=== PATIENT | female | born 1990 | race Caucasian/White ===

== ENCOUNTER 2017-09-26 21:40 | Inpatient (IN) | payer MEDICAID, OTHER ==
[~2017-09-26] VITALS: Ht 162.6 cm; Wt 74.5 kg
[~2017-09-26 21:40] MED LIST: ASPI-1265 PO; CLIN-80 PO
[2017-09-26] MEDS ORDERED: acetaminophen 325mg tablet PO ONE (22:40)
[2017-09-26 23:09] LABS: BASOPHILS % (AUTO) 0.1 % (0-1); EOSINOPHILS # (AUTO) 0.2 X10'3 (0-0.9); EOSINOPHILS % (AUTO) 1.4 % (0-6); HEMOGLOBIN 12.1 g/dl (12.0-16.0); LYMPHOCYTES % (AUTO) 8.8 % (21-51); MEAN CORPUSCULAR HGB CONC 33.5 % (33.0-36.5); MEAN CORPUSCULAR VOLUME 77.5 FL (78-98); MEAN PLATELET VOLUME 9.5 FL (7.4-10.4); MONOCYTES # (AUTO) 0.7 X10'3 (0-0.9); MONOCYTES % (AUTO) 6.4 % (2-12); NEUTROPHILS # (AUTO) 9.2 X10'3 (1.8-7.7); NEUTROPHILS % (AUTO) 83.3 % (42-75); PLATELET COUNT 156 X10'3 (140-440); RED BLOOD COUNT 4.64 X10'6 (4.20-5.60); RED CELL DISTRIBUTION WIDTH 14.3 % (11.5-14.5); WHITE BLOOD COUNT 11.1 X10'3 (4.5-11.0)
[2017-09-26 23:21] LABS: INR 1.1 INR; PARTIAL THROMBOPLASTIN TIME 33 SECONDS (22-32); PROTHROMBIN TIME 10.9 SECONDS (9.0-12.0)
[2017-09-26] MEDS ORDERED: vancomycin/NS 1 GM ADD-VANTAGE 250 ML IV ONE (23:25)
[2017-09-26] MEDS ORDERED: levoFLOXACIN-Levaquin 750MG/D5 150 ML IV ONE (23:25)
[2017-09-26] MEDS ORDERED: normal saline 1000ML IV soln IVB ONE (23:25)
[2017-09-26 23:43] LABS: ALANINE AMINOTRANSFERASE 38 U/L (12-78); ALBUMIN 3.4 G/DL (3.4-5.0); ALBUMIN/GLOBULIN RATIO 0.7 (1.1-1.5); ALKALINE PHOSPHATASE 93 IU/L (46-116); ANION GAP 12 (8-16); ASPARTATE AMINO TRANSFERASE 36 U/L (10-37); BILIRUBIN,TOTAL 0.5 MG/DL (0.1-1.0); BLOOD UREA NITROGEN 16 MG/DL (7-18); BUN/CREATININE RATIO 13.4 (6.6-38.0); CALCIUM 8.6 MG/DL (8.5-10.1); CHLORIDE 98 MMOL/L (99-107); CREATININE 1.19 MG/DL (0.40-0.90); GLUCOSE 93 MG/DL (70-104); POTASSIUM 3.4 MMOL/L (3.5-5.1); SODIUM 136 MMOL/L (135-145); TOTAL CARBON DIOXIDE 25.8 MMOL/L (24-32); TOTAL PROTEIN 8.4 G/DL (6.4-8.2); eGFR 54 ML/MIN
[2017-09-26] MEDS ORDERED: iohexol 350MG/ML 100ml bottle IV ONE (23:43)
[2017-09-26] MEDS ORDERED: iohexol 350 MG/ML 50ML vial IV ONE (23:44)
[2017-09-26 23:50] LABS: HCG SERUM QL NEGATIVE
[2017-09-27 01:28] LABS: CLARITY,URINE CLOUDY (Clear); COLOR,URINE YELLOW (Yellow); GLUCOSE, URINE NEGATIVE (Neg); KETONES,URINE NEGATIVE (Neg); LEUKOCYTE ESTERASE ,URINE TRACE (Neg); NITRITES, URINE POSITIVE (Neg); OCCULT BLOOD,URINE LARGE (Neg); PROTEIN,URINE 100 mg/dl (Neg)
[2017-09-27 01:33] LABS: UA COLLECTION TYPE CLN CATCH MIDSTREAM
[2017-09-27 01:35] LABS: BACTERIA,URINE 2+ /HPF (Neg); RBC,URINE 50-100 /HPF (0-2); SQUAMOUS EPITHELIAL CELL,UR FEW /LPF (FEW); WBC,URINE 50-100 /HPF (0-4)
[2017-09-27] MEDS ORDERED: LIDOcaine Viscous 15ml cup MM PRN (01:50)
[2017-09-27] MEDS ORDERED: mag hydrox/Alum hydrox/simeth 30ml oral suspension PO PRN (02:00)
[2017-09-27] MEDS ORDERED: magnesium hydroxide 30ml (MOM) UD suspension PO PRN (02:00)
[2017-09-27] MEDS ORDERED: ondansetron/PF 4mg/2ml inj IV PRN (02:00)
[2017-09-27] MEDS ORDERED: NO HOME MEDS (03:56)
[2017-09-27] MEDS: heparin, porcine 5000 units/ml vial SQ SCH ×2 (07:51→19:57)
[2017-09-27] MEDS: buprenorphine/naloxone 2-0.5mg sublingual tablet SL SCH ×3 (07:51→13:44)
[2017-09-27] MEDS: CefTRIAXone/D5W-Rocephin 1gm 50 ML IV SCH ×2 (08:00→09:04)
[2017-09-27] MEDS: azithromycin/NS 500mg/250ml 250 ML IV SCH ×2 (08:00→10:44)
[2017-09-27 08:34] LABS: URINE AMPHETAMINE SCREEN POSITIVE (Neg); URINE BARBITUATE SCREEN NEGATIVE (Neg); URINE BENZODIAZEPINES SCREEN NEGATIVE (Neg); URINE CANNABINOID SCREEN POSITIVE (Neg); URINE COCAINE SCREEN NEGATIVE (Neg); URINE METHADONE SCREEN NEGATIVE (Neg); URINE OPIATE SCREEN POSITIVE (Neg); URINE PHENCYCLIDINE SCREEN NEGATIVE (Neg)
[2017-09-27 09:00] VITALS: BP 138/85
[2017-09-27] MEDS: acetaminophen 325mg tablet PO PRN (09:03)
[2017-09-27 11:05] VITALS: BP 136/83
[2017-09-27] MEDS: vancomycin/NS 1 GM ADD-VANTAGE 250 ML IV SCH ×2 (12:19→20:36)
[2017-09-27] MEDS: normal saline 1000ml 1,000 ML IV SCH ×2 (13:44→23:00)
[2017-09-27] MEDS ORDERED: potassium Cl 40MEQ/NS 500ml 500 ML IV PRN ×2 (13:55)
[2017-09-27] MEDS ORDERED: magnesium Cl slow-release 64mg tablet PO PRN (13:55)
[2017-09-27] MEDS ORDERED: magnesium 4gm in 100ml NS 100 ML IV PRN (13:55)
[2017-09-27] MEDS ORDERED: magnesium 2GM in 50ml NS 50 ML IV PRN (13:55)
[2017-09-27] MEDS ORDERED: potassium Cl 20 mEq SR tablet PO PRN ×2 (13:55)
[2017-09-27 19:00] VITALS: BP 141/82
[2017-09-27] MEDS: lactobacillus rhamnosus 10,000 MMU CELLS/CAPSULE PO SCH (19:55)
[2017-09-27] MEDS: ibuprofen tablet 400 MG TABLET PO PRN (20:36)
[2017-09-28] MEDS: ibuprofen tablet 400 MG TABLET PO PRN ×2 (03:30→20:24)
[2017-09-28 05:34] LABS: BASOPHILS % (AUTO) 0.3 % (0-1); EOSINOPHILS # (AUTO) 0.1 X10'3 (0-0.9); EOSINOPHILS % (AUTO) 0.9 % (0-6); HEMATOCRIT 30.2 % (35.0-45.0); HEMOGLOBIN 9.9 g/dl (12.0-16.0); LYMPHOCYTES % (AUTO) 11.6 % (21-51); MEAN CORPUSCULAR HEMOGLOBIN 25.7 PG (27.0-31.0); MEAN CORPUSCULAR HGB CONC 32.8 % (33.0-36.5); MEAN CORPUSCULAR VOLUME 78.5 FL (78-98); MEAN PLATELET VOLUME 10.5 FL (7.4-10.4); MONOCYTES # (AUTO) 0.9 X10'3 (0-0.9); MONOCYTES % (AUTO) 10.3 % (2-12); NEUTROPHILS # (AUTO) 6.7 X10'3 (1.8-7.7); NEUTROPHILS % (AUTO) 76.9 % (42-75); PLATELET COUNT 120 X10'3 (140-440); RED BLOOD COUNT 3.85 X10'6 (4.20-5.60); RED CELL DISTRIBUTION WIDTH 14.2 % (11.5-14.5); WHITE BLOOD COUNT 8.7 X10'3 (4.5-11.0)
[2017-09-28 05:59] LABS: ALANINE AMINOTRANSFERASE 48 U/L (12-78); ALBUMIN 2.3 G/DL (3.4-5.0); ALBUMIN/GLOBULIN RATIO 0.6 (1.1-1.5); ALKALINE PHOSPHATASE 138 IU/L (46-116); ANION GAP 9 (8-16); ASPARTATE AMINO TRANSFERASE 38 U/L (10-37); BILIRUBIN,TOTAL 0.7 MG/DL (0.1-1.0); BLOOD UREA NITROGEN 7 MG/DL (7-18); CALCIUM 8.2 MG/DL (8.5-10.1); CHLORIDE 105 MMOL/L (99-107); CREATININE 0.54 MG/DL (0.40-0.90); GLUCOSE 103 MG/DL (70-104); POTASSIUM 3.5 MMOL/L (3.5-5.1); SODIUM 139 MMOL/L (135-145); TOTAL CARBON DIOXIDE 25.3 MMOL/L (24-32); TOTAL PROTEIN 6.4 G/DL (6.4-8.2); eGFR > 90 ML/MIN
[2017-09-28 07:24] VITALS: BP 133/86
[2017-09-28] MEDS: heparin, porcine 5000 units/ml vial SQ SCH ×3 (08:00→20:00)
[2017-09-28] MEDS: buprenorphine/naloxone 2-0.5mg sublingual tablet SL SCH ×4 (08:00→23:42)
[2017-09-28] MEDS: CefTRIAXone/D5W-Rocephin 1gm 50 ML IV SCH (08:04)
[2017-09-28] MEDS: lactobacillus rhamnosus 10,000 MMU CELLS/CAPSULE PO SCH ×2 (08:04→20:24)
[2017-09-28] MEDS: normal saline 1000ml 1,000 ML IV SCH ×2 (08:07→22:47)
[2017-09-28] MEDS: vancomycin/NS 1 GM ADD-VANTAGE 250 ML IV SCH ×2 (10:48→18:35)
[2017-09-28 11:30] VITALS: BP 120/75
[2017-09-28] MEDS: azithromycin/NS 500mg/250ml 250 ML IV SCH (12:32)
[2017-09-28 19:00] VITALS: BP 133/81
[2017-09-29] VITALS: BP 128/72
[2017-09-29] MEDS: vancomycin/NS 1 GM ADD-VANTAGE 250 ML IV SCH ×2 (03:14→11:39)
[2017-09-29] MEDS: normal saline 1000ml 1,000 ML IV SCH ×3 (05:00→22:00)
[2017-09-29] MEDS: CefTRIAXone/D5W-Rocephin 1gm 50 ML IV SCH (07:52)
[2017-09-29] MEDS: lactobacillus rhamnosus 10,000 MMU CELLS/CAPSULE PO SCH ×2 (07:53→19:51)
[2017-09-29] MEDS: buprenorphine/naloxone 2-0.5mg sublingual tablet SL SCH ×3 (07:53→23:49)
[2017-09-29] MEDS: heparin, porcine 5000 units/ml vial SQ SCH ×2 (07:54→19:51)
[2017-09-29 08:00] VITALS: BP 146/91
[2017-09-29] MEDS ORDERED: VANCOMYCIN LEVEL IV NR (08:30)
[2017-09-29] MEDS: azithromycin/NS 500mg/250ml 250 ML IV SCH (09:35)
[2017-09-29 11:30] VITALS: BP 124/71
[2017-09-29 11:33] LABS: BASOPHILS % (AUTO) 0.3 % (0-1); EOSINOPHILS # (AUTO) 0.1 X10'3 (0-0.9); EOSINOPHILS % (AUTO) 1.2 % (0-6); HEMATOCRIT 29.4 % (35.0-45.0); HEMOGLOBIN 9.8 g/dl (12.0-16.0); LYMPHOCYTES # (AUTO) 1.5 X10'3 (1.1-4.8); LYMPHOCYTES % (AUTO) 18.8 % (21-51); MEAN CORPUSCULAR HEMOGLOBIN 25.6 PG (27.0-31.0); MEAN CORPUSCULAR HGB CONC 33.4 % (33.0-36.5); MEAN CORPUSCULAR VOLUME 76.7 FL (78-98); MEAN PLATELET VOLUME 9.6 FL (7.4-10.4); MONOCYTES # (AUTO) 0.8 X10'3 (0-0.9); MONOCYTES % (AUTO) 10.1 % (2-12); NEUTROPHILS # (AUTO) 5.4 X10'3 (1.8-7.7); NEUTROPHILS % (AUTO) 69.6 % (42-75); PLATELET COUNT 174 X10'3 (140-440); RED BLOOD COUNT 3.82 X10'6 (4.20-5.60); RED CELL DISTRIBUTION WIDTH 14.2 % (11.5-14.5); WHITE BLOOD COUNT 7.8 X10'3 (4.5-11.0)
[2017-09-29 11:50] LABS: ALANINE AMINOTRANSFERASE 31 U/L (12-78); ALBUMIN 2.1 G/DL (3.4-5.0); ALBUMIN/GLOBULIN RATIO 0.5 (1.1-1.5); ALKALINE PHOSPHATASE 127 IU/L (46-116); ANION GAP 9 (8-16); ASPARTATE AMINO TRANSFERASE 17 U/L (10-37); BILIRUBIN,TOTAL 0.3 MG/DL (0.1-1.0); BLOOD UREA NITROGEN 5 MG/DL (7-18); BUN/CREATININE RATIO 10.4 (6.6-38.0); CALCIUM 7.9 MG/DL (8.5-10.1); CHLORIDE 104 MMOL/L (99-107); CREATININE 0.48 MG/DL (0.40-0.90); GLUCOSE 98 MG/DL (70-104); POTASSIUM 3.3 MMOL/L (3.5-5.1); SODIUM 138 MMOL/L (135-145); TOTAL CARBON DIOXIDE 25.2 MMOL/L (24-32); TOTAL PROTEIN 6.2 G/DL (6.4-8.2); VANCOMYCIN,TROUGH 7.3 UG/ML (6.0-14.0); eGFR > 90 ML/MIN
[2017-09-29 14:35] LABS: HIV ANTIBODY 1&2 RAPID NON-REACTIVE (Neg)
[2017-09-29 19:10] VITALS: BP 128/68
[2017-09-29] MEDS: ibuprofen tablet 400 MG TABLET PO PRN (19:51)
[2017-09-30 07:00] VITALS: BP 113/70
[2017-09-30] MEDS: lactobacillus rhamnosus 10,000 MMU CELLS/CAPSULE PO SCH ×2 (07:33→20:08)
[2017-09-30] MEDS: buprenorphine/naloxone 2-0.5mg sublingual tablet SL SCH ×2 (07:33→17:06)
[2017-09-30] MEDS: CefTRIAXone 2gm/D5W 50ml 50 ML IV SCH (07:34)
[2017-09-30] MEDS: ibuprofen tablet 400 MG TABLET PO PRN ×2 (07:36→17:08)
[2017-09-30] MEDS: heparin, porcine 5000 units/ml vial SQ SCH ×2 (07:43→20:00)
[2017-09-30] MEDS: normal saline 1000ml 1,000 ML IV SCH ×2 (10:17→19:12)
[2017-09-30 11:00] VITALS: BP 100/68
[2017-09-30] MEDS ORDERED: magnesium 4gm in 100ml NS 100 ML IV PRN (17:25)
[2017-09-30] MEDS ORDERED: potassium Cl 20 mEq SR tablet PO PRN ×2 (17:25)
[2017-09-30] MEDS ORDERED: potassium Cl 40MEQ/NS 500ml 500 ML IV PRN ×2 (17:25)
[2017-09-30] MEDS ORDERED: magnesium 2GM in 50ml NS 50 ML IV PRN (17:25)
[2017-09-30] MEDS ORDERED: magnesium Cl slow-release 64mg tablet PO PRN (17:25)
[2017-09-30 19:10] VITALS: BP 127/66
[2017-10-01] VITALS: BP 142/76
[2017-10-01 07:00] VITALS: BP 138/73
[2017-10-01] MEDS: heparin, porcine 5000 units/ml vial SQ SCH ×2 (08:00→20:00)
[2017-10-01] MEDS: buprenorphine/naloxone 2-0.5mg sublingual tablet SL SCH ×4 (08:06→23:59)
[2017-10-01] MEDS: lactobacillus rhamnosus 10,000 MMU CELLS/CAPSULE PO SCH ×2 (08:06→21:00)
[2017-10-01] MEDS: ibuprofen tablet 400 MG TABLET PO PRN ×2 (08:06→15:50)
[2017-10-01] MEDS: CefTRIAXone 2gm/D5W 50ml 50 ML IV SCH (08:07)
[2017-10-01] MEDS: normal saline 1000ml 1,000 ML IV SCH ×2 (08:20→18:03)
[2017-10-01 11:57] VITALS: BP 127/68
[2017-10-01 13:27] LABS: HBSAG SCREEN Negative (Negative); HEP A AB, IGM Negative (Negative); HEP B CORE AB, IGM Negative (Negative); HEPATITIS C ANTIBODY >11.0 s/co ratio (0.0-0.9)
[2017-10-01 16:07] LABS: BASOPHILS % (AUTO) 0.2 % (0-1); EOSINOPHILS # (AUTO) 0.2 X10'3 (0-0.9); EOSINOPHILS % (AUTO) 1.7 % (0-6); HEMATOCRIT 29.1 % (35.0-45.0); HEMOGLOBIN 9.6 g/dl (12.0-16.0); LYMPHOCYTES # (AUTO) 1.9 X10'3 (1.1-4.8); LYMPHOCYTES % (AUTO) 20.9 % (21-51); MEAN CORPUSCULAR HEMOGLOBIN 25.5 PG (27.0-31.0); MEAN CORPUSCULAR HGB CONC 32.9 % (33.0-36.5); MEAN CORPUSCULAR VOLUME 77.4 FL (78-98); MEAN PLATELET VOLUME 9.1 FL (7.4-10.4); MONOCYTES % (AUTO) 11.4 % (2-12); NEUTROPHILS # (AUTO) 5.9 X10'3 (1.8-7.7); NEUTROPHILS % (AUTO) 65.8 % (42-75); PLATELET COUNT 248 X10'3 (140-440); RED BLOOD COUNT 3.76 X10'6 (4.20-5.60); WHITE BLOOD COUNT 8.9 X10'3 (4.5-11.0)
[2017-10-01 16:21] LABS: ALANINE AMINOTRANSFERASE 24 U/L (12-78); ALBUMIN/GLOBULIN RATIO 0.4 (1.1-1.5); ALKALINE PHOSPHATASE 128 IU/L (46-116); ANION GAP 8 (8-16); ASPARTATE AMINO TRANSFERASE 13 U/L (10-37); BILIRUBIN,TOTAL 0.2 MG/DL (0.1-1.0); BLOOD UREA NITROGEN 8 MG/DL (7-18); BUN/CREATININE RATIO 13.8 (6.6-38.0); CALCIUM 8.3 MG/DL (8.5-10.1); CHLORIDE 105 MMOL/L (99-107); CREATININE 0.58 MG/DL (0.40-0.90); GLUCOSE 106 MG/DL (70-104); MAGNESIUM 2.1 MG/DL (1.5-2.4); POTASSIUM 3.6 MMOL/L (3.5-5.1); SODIUM 141 MMOL/L (135-145); TOTAL CARBON DIOXIDE 28.4 MMOL/L (24-32); TOTAL PROTEIN 6.5 G/DL (6.4-8.2); eGFR > 90 ML/MIN
[2017-10-01 19:10] VITALS: BP 127/76
[2017-10-02] VITALS: BP 94/86
[2017-10-02] MEDS: normal saline 1000ml 1,000 ML IV SCH ×3 (03:00→22:24)
[2017-10-02 06:16] LABS: BASOPHILS % (AUTO) 0.3 % (0-1); EOSINOPHILS # (AUTO) 0.2 X10'3 (0-0.9); EOSINOPHILS % (AUTO) 2.1 % (0-6); HEMATOCRIT 27.8 % (35.0-45.0); HEMOGLOBIN 9.5 g/dl (12.0-16.0); LYMPHOCYTES # (AUTO) 1.8 X10'3 (1.1-4.8); LYMPHOCYTES % (AUTO) 20.4 % (21-51); MEAN CORPUSCULAR HEMOGLOBIN 25.8 PG (27.0-31.0); MEAN CORPUSCULAR VOLUME 75.9 FL (78-98); MEAN PLATELET VOLUME 9.5 FL (7.4-10.4); MONOCYTES # (AUTO) 0.7 X10'3 (0-0.9); MONOCYTES % (AUTO) 8.6 % (2-12); NEUTROPHILS # (AUTO) 5.9 X10'3 (1.8-7.7); NEUTROPHILS % (AUTO) 68.6 % (42-75); PLATELET COUNT 284 X10'3 (140-440); RED BLOOD COUNT 3.67 X10'6 (4.20-5.60); RED CELL DISTRIBUTION WIDTH 14.2 % (11.5-14.5); WHITE BLOOD COUNT 8.6 X10'3 (4.5-11.0)
[2017-10-02 06:21] LABS: ALANINE AMINOTRANSFERASE 22 U/L (12-78); ALBUMIN 1.9 G/DL (3.4-5.0); ALBUMIN/GLOBULIN RATIO 0.4 (1.1-1.5); ALKALINE PHOSPHATASE 129 IU/L (46-116); ANION GAP 7 (8-16); ASPARTATE AMINO TRANSFERASE 15 U/L (10-37); BILIRUBIN,TOTAL 0.3 MG/DL (0.1-1.0); BLOOD UREA NITROGEN 6 MG/DL (7-18); CALCIUM 8.1 MG/DL (8.5-10.1); CHLORIDE 104 MMOL/L (99-107); GLUCOSE 103 MG/DL (70-104); MAGNESIUM 1.8 MG/DL (1.5-2.4); POTASSIUM 3.7 MMOL/L (3.5-5.1); SODIUM 139 MMOL/L (135-145); TOTAL CARBON DIOXIDE 28.2 MMOL/L (24-32); TOTAL PROTEIN 6.4 G/DL (6.4-8.2); eGFR > 90 ML/MIN
[2017-10-02 07:22] VITALS: BP 140/80
[2017-10-02] MEDS: lactobacillus rhamnosus 10,000 MMU CELLS/CAPSULE PO SCH ×2 (07:33→20:19)
[2017-10-02] MEDS: CefTRIAXone 2gm/D5W 50ml 50 ML IV SCH (07:33)
[2017-10-02] MEDS: buprenorphine/naloxone 2-0.5mg sublingual tablet SL SCH ×2 (07:34→16:12)
[2017-10-02] MEDS: heparin, porcine 5000 units/ml vial SQ SCH ×2 (07:34→21:38)
[2017-10-02 11:55] VITALS: BP 123/79
[2017-10-02 20:00] VITALS: BP 141/89
[2017-10-02] MEDS: ibuprofen tablet 400 MG TABLET PO PRN (20:19)
[2017-10-03] VITALS: BP 134/98
[2017-10-03] MEDS: buprenorphine/naloxone 2-0.5mg sublingual tablet SL SCH ×3 (00:59→17:13)
[2017-10-03 07:00] VITALS: BP 138/89
[2017-10-03] MEDS: normal saline 1000ml 1,000 ML IV SCH ×2 (07:43→17:17)
[2017-10-03] MEDS: CefTRIAXone 2gm/D5W 50ml 50 ML IV SCH (07:44)
[2017-10-03] MEDS: heparin, porcine 5000 units/ml vial SQ SCH ×3 (07:45→21:38)
[2017-10-03] MEDS: lactobacillus rhamnosus 10,000 MMU CELLS/CAPSULE PO SCH ×2 (07:45→21:34)
[2017-10-03 11:00] VITALS: BP 143/97
[2017-10-03] MEDS ORDERED: LIDOcaine 1%/PF (10mg/ml) 5ml vial ONE (14:54)
[2017-10-03 15:00] VITALS: BP 118/76
[2017-10-03 15:15] VITALS: BP 126/74
[2017-10-03 16:00] LABS: BFSOURCE LEFT PLEURAL FLD; PLEURAL FLUID PH 7.208 (7.63-7.65)
[2017-10-03 16:13] LABS: BF RBC COUNT 665 /CU MM; BF WBC COUNT 480 /CU MM (0-1000); BFAPPEAR HAZY; BFCOLOR YELLOW; BFVOLUME 60 ML; LYMPHOCYTES,BODY FLUID 31 %; MONOCYTES,BODY FLUID 2 %; NEUTROPHILS,BODY FLUID 67 %
[2017-10-03 16:38] LABS: GLUCOSE,BODY FLUID 69 MG/DL
[2017-10-03 16:39] LABS: LDH,BODY FLUID 301 U/L; TOTAL PROTEIN,BODY FLUID 4.5 G/DL
[2017-10-03 20:00] VITALS: BP 143/90
[2017-10-04] VITALS: BP 156/94
[2017-10-04] MEDS: buprenorphine/naloxone 2-0.5mg sublingual tablet SL SCH ×4 (01:12→23:57)
[2017-10-04] MEDS: normal saline 1000ml 1,000 ML IV SCH ×2 (01:16→13:50)
[2017-10-04 06:18] LABS: POTASSIUM 3.7 MMOL/L (3.5-5.1)
[2017-10-04 07:00] VITALS: BP 144/83
[2017-10-04] MEDS: heparin, porcine 5000 units/ml vial SQ SCH ×3 (08:00→09:13)
[2017-10-04] MEDS: CefTRIAXone 2gm/D5W 50ml 50 ML IV SCH (09:09)
[2017-10-04] MEDS: lactobacillus rhamnosus 10,000 MMU CELLS/CAPSULE PO SCH ×2 (09:11→19:26)
[2017-10-04 11:00] VITALS: BP 140/94
[2017-10-04] MEDS: HYDROcodone/acetaminophen 5mg/325mg tablet PO PRN (19:26)
[2017-10-04 20:00] VITALS: BP 134/95
[2017-10-05] VITALS: BP 158/100
[2017-10-05] MEDS: normal saline 1000ml 1,000 ML IV SCH ×3 (01:11→20:08)
[2017-10-05 05:49] LABS: POTASSIUM 3.8 MMOL/L (3.5-5.1)
[2017-10-05 07:40] VITALS: BP 159/95
[2017-10-05] MEDS: lactobacillus rhamnosus 10,000 MMU CELLS/CAPSULE PO SCH ×2 (07:45→20:05)
[2017-10-05] MEDS: CefTRIAXone 2gm/D5W 50ml 50 ML IV SCH (07:45)
[2017-10-05] MEDS: buprenorphine/naloxone 2-0.5mg sublingual tablet SL SCH ×2 (07:56→16:05)
[2017-10-05] MEDS ORDERED: metoprolol succinate 25mg (24-HOUR) SR. Tablet PO ONE (10:45)
[2017-10-05 11:45] VITALS: BP 144/93
[2017-10-05 19:00] VITALS: BP 140/98
[2017-10-05] MEDS: heparin, porcine 5000 units/ml vial SQ SCH (20:00)
[2017-10-05] MEDS: HYDROcodone/acetaminophen 5mg/325mg tablet PO PRN (20:06)
[2017-10-06] VITALS: BP 145/95
[2017-10-06] MEDS: buprenorphine/naloxone 2-0.5mg sublingual tablet SL SCH ×3 (00:10→16:58)
[2017-10-06 07:00] VITALS: BP 133/87
[2017-10-06] MEDS: normal saline 1000ml 1,000 ML IV SCH ×3 (07:00→18:58)
[2017-10-06] MEDS: CefTRIAXone 2gm/D5W 50ml 50 ML IV SCH (07:41)
[2017-10-06] MEDS: metoprolol succinate 25mg (24-HOUR) SR. Tablet PO SCH (07:43)
[2017-10-06] MEDS: heparin, porcine 5000 units/ml vial SQ SCH ×2 (07:43→20:00)
[2017-10-06] MEDS: lactobacillus rhamnosus 10,000 MMU CELLS/CAPSULE PO SCH ×2 (07:43→20:55)
[2017-10-06 12:00] VITALS: BP 148/86
[2017-10-06] MEDS: HYDROcodone/acetaminophen 5mg/325mg tablet PO PRN (18:54)
[2017-10-06 19:00] VITALS: BP 147/92
[2017-10-07] VITALS: BP 116/77
[2017-10-07] MEDS: buprenorphine/naloxone 2-0.5mg sublingual tablet SL SCH ×4 (01:15→23:20)
[2017-10-07] MEDS: normal saline 1000ml 1,000 ML IV SCH ×2 (04:26→15:17)
[2017-10-07 07:00] VITALS: BP 144/79
[2017-10-07] MEDS: heparin, porcine 5000 units/ml vial SQ SCH ×2 (08:00→19:48)
[2017-10-07] MEDS: metoprolol succinate 25mg (24-HOUR) SR. Tablet PO SCH (08:27)
[2017-10-07] MEDS: CefTRIAXone 2gm/D5W 50ml 50 ML IV SCH (08:27)
[2017-10-07] MEDS: lactobacillus rhamnosus 10,000 MMU CELLS/CAPSULE PO SCH ×2 (08:27→19:47)
[2017-10-07 12:27] VITALS: BP 133/70
[2017-10-07 19:00] VITALS: BP 137/81
[2017-10-08] VITALS: BP 141/83
[2017-10-08] MEDS: normal saline 1000ml 1,000 ML IV SCH ×2 (04:46→15:11)
[2017-10-08 07:00] VITALS: BP 138/75
[2017-10-08] MEDS: buprenorphine/naloxone 2-0.5mg sublingual tablet SL SCH ×2 (08:00→15:16)
[2017-10-08] MEDS: heparin, porcine 5000 units/ml vial SQ SCH (08:00)
[2017-10-08] MEDS: CefTRIAXone 2gm/D5W 50ml 50 ML IV SCH (09:30)
[2017-10-08] MEDS: lactobacillus rhamnosus 10,000 MMU CELLS/CAPSULE PO SCH ×2 (09:31→21:39)
[2017-10-08] MEDS: metoprolol succinate 25mg (24-HOUR) SR. Tablet PO SCH (09:32)
[2017-10-08 12:46] VITALS: BP 117/76
[2017-10-08 19:30] VITALS: BP 138/95
[2017-10-08] MEDS: rivaroxaban 10mg tablet PO SCH (21:39)
[2017-10-08] MEDS: HYDROcodone/acetaminophen 5mg/325mg tablet PO PRN (21:51)
[2017-10-09] VITALS: BP 148/88
[2017-10-09] MEDS: buprenorphine/naloxone 2-0.5mg sublingual tablet SL SCH ×4 (00:06→23:35)
[2017-10-09] MEDS: normal saline 1000ml 1,000 ML IV SCH ×2 (00:13→11:12)
[2017-10-09 06:49] LABS: BASOPHILS % (AUTO) 0.5 % (0-1); EOSINOPHILS # (AUTO) 0.2 X10'3 (0-0.9); EOSINOPHILS % (AUTO) 2.8 % (0-6); HEMATOCRIT 28.3 % (35.0-45.0); HEMOGLOBIN 9.4 g/dl (12.0-16.0); LYMPHOCYTES # (AUTO) 2.3 X10'3 (1.1-4.8); MEAN CORPUSCULAR HEMOGLOBIN 25.6 PG (27.0-31.0); MEAN CORPUSCULAR HGB CONC 33.3 % (33.0-36.5); MEAN CORPUSCULAR VOLUME 76.9 FL (78-98); MEAN PLATELET VOLUME 9.4 FL (7.4-10.4); MONOCYTES # (AUTO) 0.5 X10'3 (0-0.9); MONOCYTES % (AUTO) 6.4 % (2-12); NEUTROPHILS # (AUTO) 4.7 X10'3 (1.8-7.7); NEUTROPHILS % (AUTO) 60.3 % (42-75); PLATELET COUNT 345 X10'3 (140-440); RED BLOOD COUNT 3.68 X10'6 (4.20-5.60); RED CELL DISTRIBUTION WIDTH 13.8 % (11.5-14.5); WHITE BLOOD COUNT 7.8 X10'3 (4.5-11.0)
[2017-10-09 07:05] LABS: ALANINE AMINOTRANSFERASE 26 U/L (12-78); ALBUMIN 2.2 G/DL (3.4-5.0); ALBUMIN/GLOBULIN RATIO 0.5 (1.1-1.5); ALKALINE PHOSPHATASE 124 IU/L (46-116); ANION GAP 9 (8-16); ASPARTATE AMINO TRANSFERASE 16 U/L (10-37); BILIRUBIN,TOTAL 0.2 MG/DL (0.1-1.0); BLOOD UREA NITROGEN 10 MG/DL (7-18); BUN/CREATININE RATIO 18.9 (6.6-38.0); CALCIUM 8.6 MG/DL (8.5-10.1); CHLORIDE 104 MMOL/L (99-107); CREATININE 0.53 MG/DL (0.40-0.90); GLUCOSE 90 MG/DL (70-104); POTASSIUM 4.1 MMOL/L (3.5-5.1); SODIUM 140 MMOL/L (135-145); TOTAL CARBON DIOXIDE 26.8 MMOL/L (24-32); TOTAL PROTEIN 6.9 G/DL (6.4-8.2); eGFR > 90 ML/MIN
[2017-10-09 07:17] VITALS: BP 139/89
[2017-10-09] MEDS: rivaroxaban 10mg tablet PO SCH (08:05)
[2017-10-09] MEDS: metoprolol succinate 25mg (24-HOUR) SR. Tablet PO SCH (08:05)
[2017-10-09] MEDS: lactobacillus rhamnosus 10,000 MMU CELLS/CAPSULE PO SCH ×2 (08:05→21:05)
[2017-10-09] MEDS: CefTRIAXone 2gm/D5W 50ml 50 ML IV SCH (08:05)
[2017-10-09] MEDS ORDERED: NORMAL SALINE IJ ONE (11:15)
[2017-10-09] MEDS ORDERED: ALTEPLASE IJ ONE (11:15)
[2017-10-09 12:21] VITALS: BP 135/86
[2017-10-09] MEDS ORDERED: NORMAL SALINE IJ PRN (15:05)
[2017-10-09] MEDS ORDERED: ALTEPLASE IJ PRN (15:05)
[2017-10-09 20:00] VITALS: BP 151/88
[2017-10-10] VITALS (12 sets, daily range): BP systolic 123–161; BP diastolic 73–97
[2017-10-10 06:19] LABS: ALANINE AMINOTRANSFERASE 20 U/L (12-78); ALBUMIN 2.3 G/DL (3.4-5.0); ALBUMIN/GLOBULIN RATIO 0.5 (1.1-1.5); ALKALINE PHOSPHATASE 120 IU/L (46-116); ANION GAP 9 (8-16); ASPARTATE AMINO TRANSFERASE 12 U/L (10-37); BILIRUBIN,TOTAL 0.2 MG/DL (0.1-1.0); BLOOD UREA NITROGEN 16 MG/DL (7-18); BUN/CREATININE RATIO 23.9 (6.6-38.0); CALCIUM 8.5 MG/DL (8.5-10.1); CHLORIDE 105 MMOL/L (99-107); CREATININE 0.67 MG/DL (0.40-0.90); GLUCOSE 93 MG/DL (70-104); POTASSIUM 4.1 MMOL/L (3.5-5.1); SODIUM 142 MMOL/L (135-145); TOTAL CARBON DIOXIDE 27.8 MMOL/L (24-32); TOTAL PROTEIN 6.8 G/DL (6.4-8.2); eGFR > 90 ML/MIN
[2017-10-10] MEDS: rivaroxaban 10mg tablet PO SCH (08:00)
[2017-10-10] MEDS: lactobacillus rhamnosus 10,000 MMU CELLS/CAPSULE PO SCH ×2 (08:11→20:20)
[2017-10-10] MEDS: metoprolol succinate 25mg (24-HOUR) SR. Tablet PO SCH (08:11)
[2017-10-10] MEDS: CefTRIAXone 2gm/D5W 50ml 50 ML IV SCH (08:12)
[2017-10-10] MEDS: buprenorphine/naloxone 2-0.5mg sublingual tablet SL SCH ×3 (08:12→23:53)
[2017-10-10] MEDS ORDERED: LIDOcaine 1%/PF (10mg/ml) 5ml vial ONE (10:07)
[2017-10-10] MEDS ORDERED: fentaNYL/PF 50MCG/1 ML 2ML syringe ONE (10:08)
[2017-10-10] MEDS: ibuprofen tablet 400 MG TABLET PO PRN (12:45)
[2017-10-11] VITALS: BP 136/82
[2017-10-11 03:52] LABS: BASOPHILS # (AUTO) 0.1 X10'3 (0-0.2); BASOPHILS % (AUTO) 0.9 % (0-1); EOSINOPHILS # (AUTO) 0.2 X10'3 (0-0.9); EOSINOPHILS % (AUTO) 2.3 % (0-6); HEMATOCRIT 30.8 % (35.0-45.0); HEMOGLOBIN 10.1 g/dl (12.0-16.0); LYMPHOCYTES # (AUTO) 2.4 X10'3 (1.1-4.8); LYMPHOCYTES % (AUTO) 33.5 % (21-51); MEAN CORPUSCULAR HEMOGLOBIN 25.3 PG (27.0-31.0); MEAN CORPUSCULAR HGB CONC 32.7 % (33.0-36.5); MEAN CORPUSCULAR VOLUME 77.3 FL (78-98); MEAN PLATELET VOLUME 9.8 FL (7.4-10.4); MONOCYTES # (AUTO) 0.5 X10'3 (0-0.9); MONOCYTES % (AUTO) 7.3 % (2-12); PLATELET COUNT 360 X10'3 (140-440); RED BLOOD COUNT 3.98 X10'6 (4.20-5.60); RED CELL DISTRIBUTION WIDTH 14.2 % (11.5-14.5); WHITE BLOOD COUNT 7.2 X10'3 (4.5-11.0)
[2017-10-11 04:09] LABS: ALANINE AMINOTRANSFERASE 25 U/L (12-78); ALBUMIN 2.5 G/DL (3.4-5.0); ALBUMIN/GLOBULIN RATIO 0.5 (1.1-1.5); ALKALINE PHOSPHATASE 129 IU/L (46-116); ANION GAP 6 (8-16); BILIRUBIN,TOTAL 0.3 MG/DL (0.1-1.0); BLOOD UREA NITROGEN 14 MG/DL (7-18); BUN/CREATININE RATIO 25.9 (6.6-38.0); CALCIUM 8.9 MG/DL (8.5-10.1); CHLORIDE 103 MMOL/L (99-107); CREATININE 0.54 MG/DL (0.40-0.90); GLUCOSE 96 MG/DL (70-104); SODIUM 139 MMOL/L (135-145); TOTAL CARBON DIOXIDE 30.1 MMOL/L (24-32); TOTAL PROTEIN 7.7 G/DL (6.4-8.2); eGFR > 90 ML/MIN
[2017-10-11 04:13] LABS: ASPARTATE AMINO TRANSFERASE 37 U/L (10-37); POTASSIUM 5.7 MMOL/L (3.5-5.1)
[2017-10-11 08:00] VITALS: BP 122/88
[2017-10-11] MEDS: metoprolol succinate 25mg (24-HOUR) SR. Tablet PO SCH (09:20)
[2017-10-11] MEDS: lactobacillus rhamnosus 10,000 MMU CELLS/CAPSULE PO SCH ×2 (09:20→20:20)
[2017-10-11] MEDS: CefTRIAXone 2gm/D5W 50ml 50 ML IV SCH (09:20)
[2017-10-11] MEDS: ibuprofen tablet 400 MG TABLET PO PRN (09:21)
[2017-10-11] MEDS: buprenorphine/naloxone 2-0.5mg sublingual tablet SL SCH ×2 (09:21→15:54)
[2017-10-11] MEDS: rivaroxaban 10mg tablet PO SCH (10:10)
[2017-10-11 11:00] VITALS: BP 113/75
[2017-10-11] MEDS ORDERED: tPA-cathflo 2 MG/2 ml IV flush ICATH ONE (11:25)
[2017-10-11] MEDS ORDERED: HYDROcodone/acetaminophen 10/325mg tab PO PRN (12:15)
[2017-10-11 20:00] VITALS: BP 123/79
[2017-10-12] VITALS: BP 127/73
[2017-10-12 04:30] LABS: ALANINE AMINOTRANSFERASE 24 U/L (12-78); ALBUMIN 2.6 G/DL (3.4-5.0); ALBUMIN/GLOBULIN RATIO 0.5 (1.1-1.5); ALKALINE PHOSPHATASE 112 IU/L (46-116); ANION GAP 9 (8-16); ASPARTATE AMINO TRANSFERASE 13 U/L (10-37); BILIRUBIN,TOTAL 0.2 MG/DL (0.1-1.0); BLOOD UREA NITROGEN 17 MG/DL (7-18); BUN/CREATININE RATIO 24.6 (6.6-38.0); CHLORIDE 100 MMOL/L (99-107); CREATININE 0.69 MG/DL (0.40-0.90); GLUCOSE 111 MG/DL (70-104); POTASSIUM 4.4 MMOL/L (3.5-5.1); SODIUM 138 MMOL/L (135-145); TOTAL CARBON DIOXIDE 28.6 MMOL/L (24-32); TOTAL PROTEIN 7.4 G/DL (6.4-8.2); eGFR > 90 ML/MIN
[2017-10-12 07:00] VITALS: BP 119/75
[2017-10-12] MEDS: rivaroxaban 10mg tablet PO SCH (07:24)
[2017-10-12] MEDS: metoprolol succinate 25mg (24-HOUR) SR. Tablet PO SCH (07:24)
[2017-10-12] MEDS: lactobacillus rhamnosus 10,000 MMU CELLS/CAPSULE PO SCH ×2 (07:24→21:55)
[2017-10-12] MEDS: CefTRIAXone 2gm/D5W 50ml 50 ML IV SCH (07:25)
[2017-10-12] MEDS: ibuprofen tablet 400 MG TABLET PO PRN ×2 (07:28→21:55)
[2017-10-12] MEDS: buprenorphine/naloxone 2-0.5mg sublingual tablet SL SCH ×3 (07:29→16:32)
[2017-10-12] MEDS ORDERED: ALTEPLASE IJ ONE (09:00)
[2017-10-12] MEDS ORDERED: NORMAL SALINE IJ ONE (09:00)
[2017-10-12 12:00] VITALS: BP 114/62
[2017-10-12 20:00] VITALS: BP 92/55
[2017-10-12 23:00] VITALS: BP 122/69
[2017-10-13] MEDS: buprenorphine/naloxone 2-0.5mg sublingual tablet SL SCH ×3 (00:20→15:23)
[2017-10-13 05:26] LABS: BASOPHILS # (AUTO) 0.1 X10'3 (0-0.2); BASOPHILS % (AUTO) 0.7 % (0-1); EOSINOPHILS # (AUTO) 0.2 X10'3 (0-0.9); EOSINOPHILS % (AUTO) 1.9 % (0-6); HEMATOCRIT 29.7 % (35.0-45.0); HEMOGLOBIN 9.9 g/dl (12.0-16.0); LYMPHOCYTES # (AUTO) 2.2 X10'3 (1.1-4.8); LYMPHOCYTES % (AUTO) 22.6 % (21-51); MEAN CORPUSCULAR HEMOGLOBIN 25.6 PG (27.0-31.0); MEAN CORPUSCULAR HGB CONC 33.2 % (33.0-36.5); MONOCYTES # (AUTO) 0.8 X10'3 (0-0.9); NEUTROPHILS # (AUTO) 6.5 X10'3 (1.8-7.7); NEUTROPHILS % (AUTO) 66.8 % (42-75); PLATELET COUNT 247 X10'3 (140-440); RED BLOOD COUNT 3.85 X10'6 (4.20-5.60); RED CELL DISTRIBUTION WIDTH 14.3 % (11.5-14.5); WHITE BLOOD COUNT 9.7 X10'3 (4.5-11.0)
[2017-10-13 05:47] LABS: ALANINE AMINOTRANSFERASE 20 U/L (12-78); ALBUMIN 2.5 G/DL (3.4-5.0); ALBUMIN/GLOBULIN RATIO 0.5 (1.1-1.5); ALKALINE PHOSPHATASE 106 IU/L (46-116); ANION GAP 9 (8-16); BILIRUBIN,TOTAL 0.4 MG/DL (0.1-1.0); BLOOD UREA NITROGEN 13 MG/DL (7-18); BUN/CREATININE RATIO 19.1 (6.6-38.0); CALCIUM 8.8 MG/DL (8.5-10.1); CHLORIDE 104 MMOL/L (99-107); CREATININE 0.68 MG/DL (0.40-0.90); GLUCOSE 104 MG/DL (70-104); SODIUM 141 MMOL/L (135-145); TOTAL CARBON DIOXIDE 27.8 MMOL/L (24-32); TOTAL PROTEIN 7.6 G/DL (6.4-8.2); eGFR > 90 ML/MIN
[2017-10-13 05:48] LABS: ASPARTATE AMINO TRANSFERASE 27 U/L (10-37); POTASSIUM 4.5 MMOL/L (3.5-5.1)
[2017-10-13] MEDS: CefTRIAXone 2gm/D5W 50ml 50 ML IV SCH (07:15)
[2017-10-13] MEDS: lactobacillus rhamnosus 10,000 MMU CELLS/CAPSULE PO SCH ×2 (07:15→19:40)
[2017-10-13] MEDS: metoprolol succinate 25mg (24-HOUR) SR. Tablet PO SCH (07:16)
[2017-10-13] MEDS: rivaroxaban 10mg tablet PO SCH (07:17)
[2017-10-13 07:36] VITALS: BP 109/60
[2017-10-13 11:43] VITALS: BP 112/61
[2017-10-13] MEDS ORDERED: iohexol 300mg/ml 100ml inj. ONE (16:44)
[2017-10-13 18:00] VITALS: BP 119/67
[2017-10-13] MEDS: acetaminophen 325mg tablet PO PRN (19:40)
[2017-10-13 23:30] VITALS: BP 102/58
[2017-10-14] VITALS (16 sets, daily range): BP systolic 105–145; BP diastolic 58–72
[2017-10-14] MEDS: buprenorphine/naloxone 2-0.5mg sublingual tablet SL SCH ×3 (01:46→16:37)
[2017-10-14 05:55] LABS: BASOPHILS # (AUTO) 0.1 X10'3 (0-0.2); BASOPHILS % (AUTO) 0.9 % (0-1); EOSINOPHILS # (AUTO) 0.2 X10'3 (0-0.9); EOSINOPHILS % (AUTO) 2.2 % (0-6); HEMATOCRIT 28.1 % (35.0-45.0); HEMOGLOBIN 9.3 g/dl (12.0-16.0); LYMPHOCYTES % (AUTO) 23.4 % (21-51); MEAN CORPUSCULAR HEMOGLOBIN 25.5 PG (27.0-31.0); MEAN CORPUSCULAR VOLUME 77.2 FL (78-98); MEAN PLATELET VOLUME 9.4 FL (7.4-10.4); MONOCYTES # (AUTO) 0.8 X10'3 (0-0.9); MONOCYTES % (AUTO) 8.8 % (2-12); NEUTROPHILS # (AUTO) 5.6 X10'3 (1.8-7.7); NEUTROPHILS % (AUTO) 64.7 % (42-75); PLATELET COUNT 340 X10'3 (140-440); RED BLOOD COUNT 3.64 X10'6 (4.20-5.60); RED CELL DISTRIBUTION WIDTH 13.5 % (11.5-14.5); WHITE BLOOD COUNT 8.6 X10'3 (4.5-11.0)
[2017-10-14 06:56] LABS: ALANINE AMINOTRANSFERASE 30 U/L (12-78); ALBUMIN 2.9 G/DL (3.4-5.0); ALBUMIN/GLOBULIN RATIO 0.5 (1.1-1.5); ALKALINE PHOSPHATASE 119 IU/L (46-116); ANION GAP 7 (8-16); ASPARTATE AMINO TRANSFERASE 21 U/L (10-37); BILIRUBIN,TOTAL 0.5 MG/DL (0.1-1.0); BLOOD UREA NITROGEN 12 MG/DL (7-18); CALCIUM 9.2 MG/DL (8.5-10.1); CHLORIDE 101 MMOL/L (99-107); CREATININE 0.75 MG/DL (0.40-0.90); GLUCOSE 90 MG/DL (70-104); POTASSIUM 4.6 MMOL/L (3.5-5.1); SODIUM 139 MMOL/L (135-145); TOTAL CARBON DIOXIDE 30.6 MMOL/L (24-32); TOTAL PROTEIN 8.2 G/DL (6.4-8.2); eGFR > 90 ML/MIN
[2017-10-14] MEDS: lactobacillus rhamnosus 10,000 MMU CELLS/CAPSULE PO SCH ×2 (07:55→19:54)
[2017-10-14] MEDS: CefTRIAXone 2gm/D5W 50ml 50 ML IV SCH (07:55)
[2017-10-14] MEDS: metoprolol succinate 25mg (24-HOUR) SR. Tablet PO SCH (07:56)
[2017-10-14] MEDS ORDERED: NORMAL SALINE ICATH ONE (08:30)
[2017-10-14] MEDS ORDERED: FLUSH 5 MG ICATH ONE (08:30)
[2017-10-14] MEDS ORDERED: TPA CATHFLO ICATH ONE (08:30)
[2017-10-14] MEDS ORDERED: midazolam 2 mg/2 ml injection IV PRN (13:30)
[2017-10-14] MEDS ORDERED: fentaNYL/PF 50MCG/1 ML 2ML syringe IV PRN (13:30)
[2017-10-14] MEDS ORDERED: midazolam 2 mg/2 ml injection ONE (14:00)
[2017-10-14] MEDS ORDERED: fentaNYL/PF 50MCG/1 ML 2ML syringe ONE (14:00)
[2017-10-14] MEDS ORDERED: LIDOcaine 1%/PF (10mg/ml) 5ml vial ONE (14:30)
[2017-10-14 15:38] LABS: BFSOURCE LEFT PLEURAL FLD; PLEURAL FLUID PH 7.297 (7.63-7.65)
[2017-10-14 15:54] LABS: GLUCOSE,BODY FLUID 77 MG/DL; LDH,BODY FLUID 125 U/L; TOTAL PROTEIN,BODY FLUID 6.1 G/DL
[2017-10-14 16:30] LABS: LYMPHOCYTES,BODY FLUID 46 %; MONOCYTES,BODY FLUID 9 %; NEUTROPHILS,BODY FLUID 45 %
[2017-10-14 16:35] LABS: BFAPPEAR CLOUDY
[2017-10-14 16:36] LABS: BF RBC COUNT 900 /CU MM; BF WBC COUNT 950 /CU MM (0-1000); BFCOLOR YELLOW; BFVOLUME 10.5 ML
[2017-10-14] MEDS: ibuprofen tablet 400 MG TABLET PO PRN (19:53)
[2017-10-14] MEDS ORDERED: HYDROmorphone inj. 0.5 MG/0.5 ML DISP.SYRIN IM ONE (20:05)
[2017-10-15] MEDS: buprenorphine/naloxone 2-0.5mg sublingual tablet SL SCH ×3 (00:35→16:52)
[2017-10-15 06:00] LABS: BASOPHILS # (AUTO) 0.1 X10'3 (0-0.2); BASOPHILS % (AUTO) 0.8 % (0-1); EOSINOPHILS # (AUTO) 0.1 X10'3 (0-0.9); EOSINOPHILS % (AUTO) 2.3 % (0-6); HEMATOCRIT 28.7 % (35.0-45.0); HEMOGLOBIN 9.6 g/dl (12.0-16.0); LYMPHOCYTES # (AUTO) 1.9 X10'3 (1.1-4.8); LYMPHOCYTES % (AUTO) 31.2 % (21-51); MEAN CORPUSCULAR HEMOGLOBIN 25.3 PG (27.0-31.0); MEAN CORPUSCULAR HGB CONC 33.4 % (33.0-36.5); MEAN CORPUSCULAR VOLUME 75.7 FL (78-98); MEAN PLATELET VOLUME 9.1 FL (7.4-10.4); MONOCYTES # (AUTO) 0.7 X10'3 (0-0.9); MONOCYTES % (AUTO) 10.9 % (2-12); NEUTROPHILS # (AUTO) 3.4 X10'3 (1.8-7.7); NEUTROPHILS % (AUTO) 54.8 % (42-75); PLATELET COUNT 388 X10'3 (140-440); RED BLOOD COUNT 3.79 X10'6 (4.20-5.60); RED CELL DISTRIBUTION WIDTH 14.2 % (11.5-14.5); WHITE BLOOD COUNT 6.2 X10'3 (4.5-11.0)
[2017-10-15] MEDS: lactobacillus rhamnosus 10,000 MMU CELLS/CAPSULE PO SCH ×2 (09:34→20:16)
[2017-10-15] MEDS: metoprolol succinate 25mg (24-HOUR) SR. Tablet PO SCH (09:34)
[2017-10-15] MEDS: CefTRIAXone 2gm/D5W 50ml 50 ML IV SCH (09:35)
[2017-10-15 10:54] VITALS: BP 117/60
[2017-10-15 11:00] VITALS: BP 131/84
[2017-10-15] MEDS: ibuprofen tablet 400 MG TABLET PO PRN (16:55)
[2017-10-15 19:30] VITALS: BP 113/66
[2017-10-16] VITALS: BP 112/67
[2017-10-16] MEDS: buprenorphine/naloxone 2-0.5mg sublingual tablet SL SCH ×3 (00:22→17:03)
[2017-10-16 06:33] LABS: BASOPHILS # (AUTO) 0.1 X10'3 (0-0.2); BASOPHILS % (AUTO) 1.1 % (0-1); EOSINOPHILS # (AUTO) 0.1 X10'3 (0-0.9); HEMOGLOBIN 8.4 g/dl (12.0-16.0); LYMPHOCYTES # (AUTO) 1.9 X10'3 (1.1-4.8); LYMPHOCYTES % (AUTO) 40.6 % (21-51); MEAN CORPUSCULAR HEMOGLOBIN 25.5 PG (27.0-31.0); MEAN CORPUSCULAR HGB CONC 33.4 % (33.0-36.5); MEAN CORPUSCULAR VOLUME 76.2 FL (78-98); MEAN PLATELET VOLUME 9.2 FL (7.4-10.4); MONOCYTES # (AUTO) 0.4 X10'3 (0-0.9); MONOCYTES % (AUTO) 8.5 % (2-12); NEUTROPHILS # (AUTO) 2.2 X10'3 (1.8-7.7); NEUTROPHILS % (AUTO) 46.8 % (42-75); PLATELET COUNT 355 X10'3 (140-440); RED BLOOD COUNT 3.29 X10'6 (4.20-5.60); RED CELL DISTRIBUTION WIDTH 13.7 % (11.5-14.5); WHITE BLOOD COUNT 4.7 X10'3 (4.5-11.0)
[2017-10-16 07:08] VITALS: BP 117/62
[2017-10-16] MEDS: CefTRIAXone 2gm/D5W 50ml 50 ML IV SCH (09:08)
[2017-10-16] MEDS: lactobacillus rhamnosus 10,000 MMU CELLS/CAPSULE PO SCH ×2 (09:08→19:30)
[2017-10-16] MEDS: metoprolol succinate 25mg (24-HOUR) SR. Tablet PO SCH (09:09)
[2017-10-16] MEDS: ibuprofen tablet 400 MG TABLET PO PRN ×2 (09:09→17:03)
[2017-10-16 11:23] VITALS: BP 133/86
[2017-10-16 19:00] VITALS: BP 127/84
[2017-10-17] VITALS: BP 103/58
[2017-10-17] MEDS: buprenorphine/naloxone 2-0.5mg sublingual tablet SL SCH ×3 (00:08→17:19)
[2017-10-17] MEDS: lactobacillus rhamnosus 10,000 MMU CELLS/CAPSULE PO SCH ×2 (07:29→19:06)
[2017-10-17] MEDS: CefTRIAXone 2gm/D5W 50ml 50 ML IV SCH (07:29)
[2017-10-17] MEDS: metoprolol succinate 25mg (24-HOUR) SR. Tablet PO SCH (07:30)
[2017-10-17 07:51] VITALS: BP 106/58
[2017-10-17] MEDS ORDERED: iohexol 300mg/ml 100ml inj. ONE (07:55)
[2017-10-17] MEDS ORDERED: tPA-cathflo 2mg/2ml IV flush 2 MG in normal saline 100ml IV soln 20 ML ICATH ONE (09:14)
[2017-10-17 19:00] VITALS: BP 132/72
[2017-10-17] MEDS: ibuprofen tablet 400 MG TABLET PO PRN (19:06)
[2017-10-18] VITALS: BP 108/57
[2017-10-18] MEDS: buprenorphine/naloxone 2-0.5mg sublingual tablet SL SCH ×3 (00:39→16:25)
[2017-10-18 07:00] VITALS: BP 117/62
[2017-10-18] MEDS: metoprolol succinate 25mg (24-HOUR) SR. Tablet PO SCH (08:39)
[2017-10-18] MEDS: lactobacillus rhamnosus 10,000 MMU CELLS/CAPSULE PO SCH ×2 (08:39→19:33)
[2017-10-18] MEDS: CefTRIAXone 2gm/D5W 50ml 50 ML IV SCH (08:40)
[2017-10-18 11:00] VITALS: BP 110/76
[2017-10-18 20:00] VITALS: BP 146/72
[2017-10-19] VITALS: BP 122/68
[2017-10-19] MEDS: buprenorphine/naloxone 2-0.5mg sublingual tablet SL SCH ×4 (00:31→23:30)
[2017-10-19] MEDS: metoprolol succinate 25mg (24-HOUR) SR. Tablet PO SCH (07:45)
[2017-10-19] MEDS: lactobacillus rhamnosus 10,000 MMU CELLS/CAPSULE PO SCH ×2 (07:45→19:48)
[2017-10-19] MEDS: CefTRIAXone 2gm/D5W 50ml 50 ML IV SCH (07:46)
[2017-10-19 07:52] VITALS: BP 109/60
[2017-10-19 11:00] VITALS: BP 112/62
[2017-10-19 19:00] VITALS: BP 137/83
[2017-10-19 23:30] VITALS: BP 132/77
[2017-10-20 05:59] LABS: BASOPHILS # (AUTO) 0.1 X10'3 (0-0.2); BASOPHILS % (AUTO) 0.7 % (0-1); EOSINOPHILS # (AUTO) 0.2 X10'3 (0-0.9); EOSINOPHILS % (AUTO) 2.1 % (0-6); HEMATOCRIT 29.7 % (35.0-45.0); HEMOGLOBIN 9.7 g/dl (12.0-16.0); LYMPHOCYTES # (AUTO) 3.3 X10'3 (1.1-4.8); LYMPHOCYTES % (AUTO) 38.4 % (21-51); MEAN CORPUSCULAR HEMOGLOBIN 25.2 PG (27.0-31.0); MEAN CORPUSCULAR HGB CONC 32.7 % (33.0-36.5); MEAN CORPUSCULAR VOLUME 76.9 FL (78-98); MEAN PLATELET VOLUME 9.1 FL (7.4-10.4); MONOCYTES # (AUTO) 0.5 X10'3 (0-0.9); MONOCYTES % (AUTO) 6.2 % (2-12); NEUTROPHILS # (AUTO) 4.5 X10'3 (1.8-7.7); NEUTROPHILS % (AUTO) 52.6 % (42-75); PLATELET COUNT 355 X10'3 (140-440); RED BLOOD COUNT 3.86 X10'6 (4.20-5.60); RED CELL DISTRIBUTION WIDTH 13.2 % (11.5-14.5); WHITE BLOOD COUNT 8.5 X10'3 (4.5-11.0)
[2017-10-20 06:49] LABS: ALANINE AMINOTRANSFERASE 45 U/L (12-78); ALBUMIN 2.9 G/DL (3.4-5.0); ALBUMIN/GLOBULIN RATIO 0.7 (1.1-1.5); ALKALINE PHOSPHATASE 114 IU/L (46-116); ANION GAP 7 (8-16); ASPARTATE AMINO TRANSFERASE 27 U/L (10-37); BILIRUBIN,TOTAL 0.1 MG/DL (0.1-1.0); BLOOD UREA NITROGEN 10 MG/DL (7-18); BUN/CREATININE RATIO 14.9 (6.6-38.0); CALCIUM 9.1 MG/DL (8.5-10.1); CHLORIDE 104 MMOL/L (99-107); CREATININE 0.67 MG/DL (0.40-0.90); GLUCOSE 101 MG/DL (70-104); POTASSIUM 5.2 MMOL/L (3.5-5.1); SODIUM 142 MMOL/L (135-145); TOTAL CARBON DIOXIDE 30.6 MMOL/L (24-32); TOTAL PROTEIN 7.2 G/DL (6.4-8.2); eGFR > 90 ML/MIN
[2017-10-20 07:30] VITALS: BP 106/66
[2017-10-20] MEDS: lactobacillus rhamnosus 10,000 MMU CELLS/CAPSULE PO SCH ×2 (08:21→19:53)
[2017-10-20] MEDS: metoprolol succinate 25mg (24-HOUR) SR. Tablet PO SCH (08:21)
[2017-10-20] MEDS: CefTRIAXone 2gm/D5W 50ml 50 ML IV SCH (08:21)
[2017-10-20] MEDS: buprenorphine/naloxone 2-0.5mg sublingual tablet SL SCH ×3 (08:22→23:06)
[2017-10-20 11:00] VITALS: BP 124/82
[2017-10-20 20:00] VITALS: BP 132/72
[2017-10-21] VITALS: BP 142/87
[2017-10-21 07:30] VITALS: BP 108/74
[2017-10-21] MEDS: metoprolol succinate 25mg (24-HOUR) SR. Tablet PO SCH (07:56)
[2017-10-21] MEDS: buprenorphine/naloxone 2-0.5mg sublingual tablet SL SCH ×2 (07:56→16:09)
[2017-10-21] MEDS: lactobacillus rhamnosus 10,000 MMU CELLS/CAPSULE PO SCH ×2 (07:56→20:03)
[2017-10-21] MEDS: CefTRIAXone 2gm/D5W 50ml 50 ML IV SCH (07:56)
[2017-10-21 08:26] LABS: ANION GAP 5 (8-16); BLOOD UREA NITROGEN 12 MG/DL (7-18); BUN/CREATININE RATIO 18.5 (6.6-38.0); CHLORIDE 104 MMOL/L (99-107); CREATININE 0.65 MG/DL (0.40-0.90); GLUCOSE 87 MG/DL (70-104); POTASSIUM 4.4 MMOL/L (3.5-5.1); SODIUM 141 MMOL/L (135-145); TOTAL CARBON DIOXIDE 31.9 MMOL/L (24-32); eGFR > 90 ML/MIN
[2017-10-21 12:00] VITALS: BP 125/81
[2017-10-21 18:50] VITALS: BP 143/87
[2017-10-22] VITALS: BP 130/81
[2017-10-22] MEDS: buprenorphine/naloxone 2-0.5mg sublingual tablet SL SCH ×4 (00:01→23:57)
[2017-10-22 07:23] VITALS: BP 132/69
[2017-10-22] MEDS: CefTRIAXone 2gm/D5W 50ml 50 ML IV SCH (07:35)
[2017-10-22] MEDS: metoprolol succinate 25mg (24-HOUR) SR. Tablet PO SCH (07:36)
[2017-10-22] MEDS: lactobacillus rhamnosus 10,000 MMU CELLS/CAPSULE PO SCH ×2 (07:36→19:22)
[2017-10-22 11:05] VITALS: BP 126/64
[2017-10-22 15:46] VITALS: BP 113/78
[2017-10-22 20:00] VITALS: BP 136/79
[2017-10-23] VITALS: BP 128/80
[2017-10-23 05:57] LABS: BASOPHILS % (AUTO) 0.8 % (0-1); EOSINOPHILS # (AUTO) 0.2 X10'3 (0-0.9); EOSINOPHILS % (AUTO) 2.8 % (0-6); HEMATOCRIT 28.8 % (35.0-45.0); HEMOGLOBIN 9.4 g/dl (12.0-16.0); LYMPHOCYTES % (AUTO) 33.6 % (21-51); MEAN CORPUSCULAR HEMOGLOBIN 25.2 PG (27.0-31.0); MEAN CORPUSCULAR HGB CONC 32.6 % (33.0-36.5); MEAN CORPUSCULAR VOLUME 77.2 FL (78-98); MEAN PLATELET VOLUME 9.2 FL (7.4-10.4); MONOCYTES # (AUTO) 0.4 X10'3 (0-0.9); MONOCYTES % (AUTO) 7.2 % (2-12); NEUTROPHILS # (AUTO) 3.3 X10'3 (1.8-7.7); NEUTROPHILS % (AUTO) 55.6 % (42-75); PLATELET COUNT 274 X10'3 (140-440); RED BLOOD COUNT 3.73 X10'6 (4.20-5.60); RED CELL DISTRIBUTION WIDTH 14.2 % (11.5-14.5); WHITE BLOOD COUNT 5.9 X10'3 (4.5-11.0)
[2017-10-23 06:15] LABS: ALANINE AMINOTRANSFERASE 53 U/L (12-78); ALBUMIN 2.9 G/DL (3.4-5.0); ALBUMIN/GLOBULIN RATIO 0.7 (1.1-1.5); ALKALINE PHOSPHATASE 102 IU/L (46-116); ANION GAP 8 (8-16); ASPARTATE AMINO TRANSFERASE 30 U/L (10-37); BILIRUBIN,TOTAL 0.2 MG/DL (0.1-1.0); BLOOD UREA NITROGEN 17 MG/DL (7-18); CALCIUM 8.9 MG/DL (8.5-10.1); CHLORIDE 104 MMOL/L (99-107); CREATININE 0.63 MG/DL (0.40-0.90); GLUCOSE 94 MG/DL (70-104); POTASSIUM 4.3 MMOL/L (3.5-5.1); SODIUM 140 MMOL/L (135-145); TOTAL CARBON DIOXIDE 28.4 MMOL/L (24-32); TOTAL PROTEIN 6.9 G/DL (6.4-8.2); eGFR > 90 ML/MIN
[2017-10-23 07:06] VITALS: BP 118/63
[2017-10-23] MEDS: metoprolol succinate 25mg (24-HOUR) SR. Tablet PO SCH (07:24)
[2017-10-23] MEDS: lactobacillus rhamnosus 10,000 MMU CELLS/CAPSULE PO SCH ×2 (07:24→20:26)
[2017-10-23] MEDS: buprenorphine/naloxone 2-0.5mg sublingual tablet SL SCH ×2 (07:25→16:17)
[2017-10-23] MEDS: CefTRIAXone 2gm/D5W 50ml 50 ML IV SCH (07:26)
[2017-10-23 11:16] VITALS: BP 115/71
[2017-10-23 13:10] VITALS: BP 158/104
[2017-10-23 13:51] VITALS: BP 136/94
[2017-10-23 20:00] VITALS: BP 155/89
[2017-10-24] VITALS: BP 141/84
[2017-10-24] MEDS: buprenorphine/naloxone 2-0.5mg sublingual tablet SL SCH ×3 (00:15→15:11)
[2017-10-24 07:05] VITALS: BP 119/74
[2017-10-24] MEDS: CefTRIAXone 2gm/D5W 50ml 50 ML IV SCH (07:41)
[2017-10-24] MEDS: metoprolol succinate 25mg (24-HOUR) SR. Tablet PO SCH (07:41)
[2017-10-24] MEDS: lactobacillus rhamnosus 10,000 MMU CELLS/CAPSULE PO SCH ×2 (07:41→20:11)
[2017-10-24 11:43] VITALS: BP 116/60
[2017-10-24 13:00] LABS: URINE AMPHETAMINE SCREEN POSITIVE (Neg); URINE BARBITUATE SCREEN NEGATIVE (Neg); URINE BENZODIAZEPINES SCREEN NEGATIVE (Neg); URINE CANNABINOID SCREEN NEGATIVE (Neg); URINE COCAINE SCREEN NEGATIVE (Neg); URINE METHADONE SCREEN NEGATIVE (Neg); URINE OPIATE SCREEN POSITIVE (Neg); URINE PHENCYCLIDINE SCREEN NEGATIVE (Neg)
[2017-10-24 20:00] VITALS: BP 140/74
[2017-10-25] VITALS: BP 133/87
[2017-10-25] MEDS: buprenorphine/naloxone 2-0.5mg sublingual tablet SL SCH ×4 (01:11→23:53)
[2017-10-25 07:09] VITALS: BP 115/70
[2017-10-25] MEDS: lactobacillus rhamnosus 10,000 MMU CELLS/CAPSULE PO SCH ×2 (08:23→20:33)
[2017-10-25] MEDS: CefTRIAXone 2gm/D5W 50ml 50 ML IV SCH (08:24)
[2017-10-25] MEDS: metoprolol succinate 25mg (24-HOUR) SR. Tablet PO SCH (08:24)
[2017-10-25 11:00] VITALS: BP 119/58
[2017-10-25 19:00] VITALS: BP 125/84
[2017-10-26] VITALS: BP 131/83
[2017-10-26 07:16] VITALS: BP 114/73
[2017-10-26] MEDS: metoprolol succinate 25mg (24-HOUR) SR. Tablet PO SCH (07:26)
[2017-10-26] MEDS: CefTRIAXone 2gm/D5W 50ml 50 ML IV SCH (07:26)
[2017-10-26] MEDS: lactobacillus rhamnosus 10,000 MMU CELLS/CAPSULE PO SCH ×2 (07:26→19:23)
[2017-10-26] MEDS: buprenorphine/naloxone 2-0.5mg sublingual tablet SL SCH ×2 (07:27→16:31)
[2017-10-26 12:32] VITALS: BP 117/60
[2017-10-26 18:30] VITALS: BP 110/69
== END 2017-10-26 21:30 | disposition left against medical advice (07) | DRG 720 ==
LOC: ER 21:40 → ED HOLD 09-27 01:59 → MED 3N 09-27 09:02
PROVIDERS: ADMIT Internal Medicine; ATTEND Family Medicine
PROC: BW211ZZ Computerized Tomography (CT Scan) of Abdomen and Pelvis using Low Osmolar Contrast (ICD-10-PCS; 2017-09-27)
PROC: B32T1ZZ Computerized Tomography (CT Scan) of Left Pulmonary Artery using Low Osmolar Contrast (ICD-10-PCS; 2017-09-27)
PROC: B3201ZZ Computerized Tomography (CT Scan) of Thoracic Aorta using Low Osmolar Contrast (ICD-10-PCS; 2017-09-27)
PROC: B32S1ZZ Computerized Tomography (CT Scan) of Right Pulmonary Artery using Low Osmolar Contrast (ICD-10-PCS; 2017-09-27)
PROC: 0W9B3ZX Drainage of Left Pleural Cavity, Percutaneous Approach, Diagnostic (ICD-10-PCS; 2017-10-03)
PROC: 0W9B3ZZ Drainage of Left Pleural Cavity, Percutaneous Approach (ICD-10-PCS; 2017-10-03)
PROC: 0W9B30Z Drainage of Left Pleural Cavity with Drainage Device, Percutaneous Approach (ICD-10-PCS; 2017-10-10)
PROC: 3E0L3GC Introduction of Other Therapeutic Substance into Pleural Cavity, Percutaneous Approach (ICD-10-PCS; principal; 2017-10-14)
PROC: 0W9B30Z Drainage of Left Pleural Cavity with Drainage Device, Percutaneous Approach (ICD-10-PCS; 2017-10-14)
PROC: 0BPQX0Z Removal of Drainage Device from Pleura, External Approach (ICD-10-PCS; 2017-10-20)
DX: A41.01 Sepsis due to Methicillin susceptible Staphylococcus aureus (principal); I26.90 Septic pulmonary embolism without acute cor pulmonale; I33.0 Acute and subacute infective endocarditis; J86.9 Pyothorax without fistula; J90 Pleural effusion, not elsewhere classified; R16.1 Splenomegaly, not elsewhere classified; J18.9 Pneumonia, unspecified organism; F15.20 Other stimulant dependence, uncomplicated; N17.9 Acute kidney failure, unspecified; B19.20 Unspecified viral hepatitis C without hepatic coma; D64.9 Anemia, unspecified; F11.23 Opioid dependence with withdrawal; F43.10 Post-traumatic stress disorder, unspecified; I10 Essential (primary) hypertension; N39.0 Urinary tract infection, site not specified; F32.9 Major depressive disorder, single episode, unspecified; F41.9 Anxiety disorder, unspecified; E87.6 Hypokalemia; F19.10 Other psychoactive substance abuse, uncomplicated; F12.90 Cannabis use, unspecified, uncomplicated; Z53.21 Procedure and treatment not carried out due to patient leaving prior to being seen by health care provider; Z98.51 Tubal ligation status; Z90.49 Acquired absence of other specified parts of digestive tract; Z88.0 Allergy status to penicillin; Z79.899 Other long term (current) drug therapy; Z79.01 Long term (current) use of anticoagulants; Z79.82 Long term (current) use of aspirin
CPT/HCPCS: 32555; 32557; 36415; 71045; 71046; 71250; 71260; 71275; 74177; 80048; 80053; 80074; 80202; 80305; 81001; 82945; 83605; 83615; 83735; 83986; 84132; 84145; 84157; 84484; 84703; 85025; 85610; 85730; 86703; 87040; 87070; 87077; 87088; 87186; 89051; 93005; 93306; 96365; 96366; 99152; 99153; 99285; A6223; A6257; A6258; A6449; C1729; C1769; J0456; J0696; J1170; J1644; J1956; J2001; J2250; J2997; J3010; J3370; J3480; J7030; Q9967

== ENCOUNTER 2025-01-14 17:21 | Inpatient (IN) | payer MEDICAID, OTHER ==
[~2025-01-14] VITALS: Ht 162.6 cm; Wt 59.4 kg
[~2025-01-14 17:21] MED LIST changes: -ASPI-1265 PO; -CLIN-80 PO; +NO HOME MEDS
[2025-01-14 18:00] LABS: LEUKOCYTE ESTERASE ,URINE SMALL (Neg); NITRITES, URINE NEGATIVE (Neg); OCCULT BLOOD,URINE MODERATE (Neg)
[2025-01-14 18:02] LABS: UA COLLECTION TYPE CLN CATCH MIDSTREAM
[2025-01-14 18:13] LABS: MEAN PLATELET VOLUME 9.1 FL (7.4-10.4); RED CELL DISTRIBUTION WIDTH 17.6 % (11.5-14.5)
--- NOTE | 2025-01-14 18:20 | Physician Documentation ---
History of Present Illness ~ Chief Complaint: Wound Stated Complaint: SWOLLEN FOOT Time Seen by MD: 18:28 Primary Medical Doctor: Liot HPI 34-year-old female that presents to the emergency department for evaluation of bilateral foot wounds times 3-4 days. Patient reports that she was bitten by mosquitoes on her legs bilaterally and has not scratching at them over the last couple of days since that time they had become erythematous edematous and painful. Also reports that she has a history of CHF she reports that she regularly uses fentanyl. She reports that she last used fentanyl this morning she typically uses twice a day denies any evidence or symptoms of fentanyl withdrawal currently. Any additional past medical history at this Tetanus within 5 years?: Yes Medication Reconciliation Allergies: Coded Allergies: Penicillins (Unverified Allergy, Unknown, 05/25/15) Miscellaneous Medications Home Med List (No Home Medications), (Reported) Past Medical History Past Medical History: Hypertension, Pneumonia Past Surgical History: cholecystectomy, , tubal ligation Patient History: FH: COPD (chronic obstructive pulmonary disease) GRANDFATHER MOTHER SIDE, Onset:Unknown GRANDMOTHER MOTHER SIDE, Onset:Unknown FH: breast cancer GRANDMOTHER FATHER SIDE, Onset:30's - 40 FH: emphysema GRANDFATHER MOTHER SIDE, Onset:Unknown GRANDMOTHER MOTHER SIDE, Onset:Unknown FH: heart attack FATHER, Onset:40's - 50 GRANDFATHER MOTHER SIDE, Onset:50's - 60 FH: thyroid cancer GRANDMOTHER MOTHER SIDE, Onset:Unknown GRANDMOTHER FATHER SIDE, Onset:50's - 60 FHx: [place]'s chorea AUNT, Onset:Unknown Other Past Family History: [place]'s chorea, gallbladder disease Alcohol Use: None Drug Use: methamphetamine, heroin Lives with: Spouse, Family Lives In: Home Occupation: student Review of Systems All Other Systems at this time: Reviewed and Negative ROS . Physical Exam Vital Signs: Temperature: 99.1, Source: Temporal, Heart Rate: 107, Respiratory Rate: 16, BP: 105/56, Pulse Oximetry: 97, Weight: 59.400 Physical Exam VITALS: Reviewed and as above. GENERAL: Alert, no apparent distress. HEENT: Normocephalic, atraumatic, PERRL, EOMI, dry mucosa, no erythema RESPIRATORY: Lungs clear, normal breath sounds, no respiratory distress. CHEST: No accessory muscle use, no retractions CV: Regular rate, rhythm, no edema, no murmur, No: JVD GI: Soft, non-tender, bowels sounds present, no rebound, guarding, or rigidity BACK: No CVA tenderness, or swelling MUSCULOSKELETAL No deformities, edema to the bilateral lower extremities accompanied by erythema, areas of abrasion and wounds to the bilateral lower extremity SKIN: Warm and dry, no rash NEURO: Oriented x4, No motor or sensory deficit PSYCH: Normal mood and affect, no agitation Progress Results/Orders Results/Orders Orders - KAREN BETHEAP Urinalysis, Cult If Indicated (01/14/25 18:28) Cult (Aer) Routine C&S+Gram St (01/14/25 18:28) Hcg, Ur Ql (01/14/25 20:32) Completed Orders - KAREN BETHEA RADIOLOGIC TECHNOLOGY PROGRAM DIRECTOR [place] (01/14/25 18:28) Furosemide 40mg Inj (Lasix Inj) (01/14/25 20:10) Vital Signs 01/14/25 01/14/25 01/14/25 17:32 19:46 19:49 Temp 99.1 99.2 Pulse 107 74 Resp 16 16 B/P (MAP) 105/56 113/65 (81) Pulse Ox 97 98 Laboratory Tests Test 01/14/25 17:34 01/14/25 18:02 Urine Specimen Description Cln catch midstream Urine Color Yellow Urine Clarity Slightly cloudy Urine pH 6.5 Urine Specific [place] 1.020 Urine Protein 30 H Urine Glucose (UA) Negative Urine Ketones Negative Urine Occult Blood Moderate H Urine Nitrite Negative Urine Bilirubin Negative Urine Urobilinogen 2.0 H Urine Leukocyte Esterase Small H Urine RBC 3-10 Urine WBC 5-10 H Urine Squamous Epithelial Cells Few Urine Bacteria Few Urine Mucus Few Urine Culture Indicated Indicated Volume Urine Centrifuged 10 ml Urine Comment White Blood Count 12.3 H Red Blood Count 4.38 Hemoglobin 11.5 L Hematocrit 34.9 L Mean Corpuscular Volume 79.8 Mean Corpuscular Hemoglobin 26.4 L Mean Corpuscular Hemoglobin Concent 33.1 Red Cell Distribution Width 17.6 H Platelet Count 161 Mean Platelet Volume 9.1 Neutrophils (%) (Auto) 85.7 H Lymphocytes (%) (Auto) 7.9 L Monocytes (%) (Auto) 6.1 Eosinophils (%) (Auto) 0 Basophils (%) (Auto) 0.3 Neutrophils # (Auto) 10.5 H Lymphocytes # (Auto) 1.0 L Monocytes # (Auto) 0.7 Eosinophils # (Auto) 0.0 Basophils # (Auto) 0.0 CBC Comment Sodium Level 131 L Potassium Level 3.9 Chloride Level 96 L Carbon Dioxide Level 29.4 Anion Gap 6 L Blood Urea Nitrogen 9 Creatinine 0.81 Estimated GFR/1.73 m2 80 BUN/Creatinine Ratio 11.1 Glucose Level 121 H Lactic Acid Level 0.7 Calcium Level 8.6 Total Bilirubin 0.6 Direct Bilirubin 0.2 Aspartate Amino Transf (AST/SGOT) 14 Alanine Aminotransferase (ALT/SGPT) 11 L Alkaline Phosphatase 72 Pro-B-Type Natriuretic Peptide 5812 H Total Protein 7.6 Albumin 2.8 L Globulin 4.8 H Albumin/Globulin Ratio 0.6 L Chemistry Comments Microbiology Date/Time Source Procedure Growth Status 01/14/25 18:22 Urine Clean Catch Midstream Urine Culture - Preliminary Culture received. Resulted Medical Decision Making Findings This patient presents with initial presentation of local erythema, warmth, swelling concerning for cellulitis. Sensitivity/pain to light touch around the erythematous area. No lymphangitic spread visible and no fluid pockets or fluctuance concerning for abscess noted. Low concern for osteomyelitis or DVT. No immune compromise, bullae, pain out of proportion, or rapid progression concerning for necrotizing fasciitis. Patient to be discharged home with keflex with follow up with their PMD. Abscess MDM Departure Referrals: NO PRIMARY CARE PROVIDER (PCP) KAREN BETHEA Jan 14, 2025 18:20
[2025-01-14 18:21] LABS: MUCUS STRANDS FEW /LPF (Neg); SQUAMOUS EPITHELIAL CELL,UR FEW /LPF (FEW)
[2025-01-14 18:26] LABS: CREATININE 0.81 MG/DL (0.40-0.90); TOTAL CARBON DIOXIDE 29.4 MMOL/L (24-32); eCRCL 83 ML/MIN; eGFR 80 ML/MIN
[2025-01-14 19:12] LABS: PRO BRAIN NATRIURETIC PEPTIDE 5812 PG/ML (0-125)
[2025-01-14] MEDS: ceFAZolin/D5W- 1GM premix 50 ML IV ONE (21:30)
[2025-01-14] MEDS ORDERED: furosemide 10 MG/1 ML 10ml inj IV ONE (21:40)
[2025-01-14] MEDS ORDERED: magnesium sulf-water 2g/50mL 50 ML IV PRN (22:10)
[2025-01-14] MEDS ORDERED: magnesium sulf-water 4G/100mL 100 ML IV PRN (22:10)
[2025-01-14] MEDS ORDERED: magnesium Cl slow-release 64mg tablet PO PRN (22:10)
[2025-01-14] MEDS ORDERED: ondansetron/PF 4mg/2ml inj IV PRN (22:10)
[2025-01-14] MEDS ORDERED: magnesium hydroxide 30ml (MOM) UD suspension PO PRN (22:10)
[2025-01-14] MEDS ORDERED: potassium Cl 40MEQ/1/2NS 520ml 520 ML IV PRN (22:10)
[2025-01-14] MEDS ORDERED: HYDROcodone/acetaminophen 5mg/325mg tablet PO PRN (22:10)
[2025-01-14] MEDS ORDERED: mag hydrox/Alum hydrox/simeth 30ml oral suspension PO PRN (22:10)
[2025-01-14] MEDS ORDERED: potassium Cl 20 mEq SR tablet PO PRN ×2 (22:10)
[2025-01-14] MEDS: normal saline 1000ml 1,000 ML IV SCH (22:35)
--- NOTE | 2025-01-14 22:49 | HISTORY AND PHYSICAL-Residence ---
History & Physical Providers to CC Resident Creating Document: JACQUELYN JONES RES ~ History of Present Illness Primary Medical Doctor: None Reason for Admit\Complaint: Bilateral lower extremity pain and swelling History of Present Illness This 34-year-old female with a past medical IV drug abuse, septic pulmonary emboli and endocarditis in 2018, MRSA abscess in 2013, CHF with preserved EF presented to the ER with a chief concern of worsening bilateral lower extremity erythema, edema and pain. She has multiple superficial skin lesions on her lower extremities and states that they are mosquito bites and she is scratched skin more often. She also has superficial skin breakouts and erythema around the mouth and bilateral eyebrow region and she attributes them to mosquito bites. Mentioned that she is supposed to take Lasix at home for CHF but no recent Cardiology, PCP follow up on recent echocardiogram. Stated that she has not taken her medications for more than two weeks because of change of insurance. Symptoms in bilateral lower extremities noted about 10 days back. Denies any chest pain, shortness of breath, PND, orthopnea, nausea or vomiting, constipation or diarrhea, dysuria or any other concerns. She has a history of IV heroin and meth abuse. Smokes fentanyl daily. Also smoked methamphetamine in the past. Allergies: Coded Allergies: Penicillins (Unverified Allergy, Unknown, 05/25/15) Home Medications Home Medications Active Reported No Home Medications (Home Med List) Each Past Medical History Past Medical History Septic pulmonary emboli and endocarditis and 2018, MRSA sepsis in 2013 pneumonia, pleural effusion requiring chest tube, CHF with preserved ejection fraction, meth abuse, fentanyl abuse, heroin abuse Past Surgical History Surgical History Comment Cholecystectomy, Family History Family History: FH: COPD (chronic obstructive pulmonary disease) GRANDFATHER MOTHER SIDE, Onset:Unknown GRANDMOTHER MOTHER SIDE, Onset:Unknown FH: breast cancer GRANDMOTHER FATHER SIDE, Onset:30's - 40 FH: emphysema GRANDFATHER MOTHER SIDE, Onset:Unknown GRANDMOTHER MOTHER SIDE, Onset:Unknown FH: heart attack FATHER, Onset:40's - 50 GRANDFATHER MOTHER SIDE, Onset:50's - 60 FH: thyroid cancer GRANDMOTHER MOTHER SIDE, Onset:Unknown GRANDMOTHER FATHER SIDE, Onset:50's - 60 FHx: [place]'s chorea AUNT, Onset:Unknown Past Social History Smoking: Non-Smoker Alcohol Use: None Drug Use: Methamphetamine, Heroin Lives with: Spouse, Family Lives In: Home Occupation: student ROS ROS Constitutional: No fever, chills, dizziness, weakness, weight gain or loss Eyes: No pain, erythema, discharge, blurring of vision ENT: No sore throat, epistaxis, tinnitus Cardiovascular: Lower extremity edema present No chest pain, chest pressure, chest discomfort, palpitations, syncope, paroxysmal nocturnal dyspnea Respiratory: No shortness of breath, cough, hemoptysis Gastrointestinal: Normal appetite. No nausea, vomiting, diarrhea, constipation, hematemesis, abdominal pain, bloating, melena or fresh blood Genitourinary: No frequency, urgency, nocturia, hematuria or dysuria Musculoskeletal: No arthralgias or myalgias Integumentary: Swelling, and Neurologic: No headache, neck pain, numbness or tingling of the extremities, weakness Psychiatric: No delusions, depression, loss of interest in normal activity or change in sleep pattern, hallucinations, suicidal ideations Endocrine: No fatigue, weakness, polydipsia, polyuria, change in appetite, heat or cold intolerance, sweating, dry skin Hematological: No bleeding, petechiae, bruising Allergies: No asthma or urticaria Exam Vitals: Vital Signs Date Time Temp Pulse Resp B/P (MAP) Pulse Ox O2 Delivery O2 Flow Rate FiO2 01/14/25 22:08 72 16 128/67 (87) 99 01/14/25 19:49 99.2 General: Alert and oriented x4 HEENT: Normocytic. Mild erythema and superficial skin breakouts around the lips and in the bilateral eyebrows region. Pupils equal round reactive to light and accommodation. Extraocular movements intact. Oral and nasal mucosa moist Neck: Trachea is in midline. No masses or JVD Chest: Bilateral normal breath sounds. No crackles, rhonchi or wheezes Cardiovascular: Regular rate and rhythm. S1-S2 normal. No rubs or murmurs Abdomen: Soft, nontender nondistended. Bowel sounds present Extremities: Bilateral lower extremity swelling, erythema, and tenderness till level below- knee. About 2 cm in diameter superficial skin break out with possible necrotic center on the medial side above posterior heel of left lower extremity with a mild yellowish discharge. Multiple about 0.5 cm in diameter circular lesion with possible necrotic centers in bilateral lower extremity. 2 +pedal pulse. No cyanosis or clubbing Central Nervous System: No gross sensory or motor deficits. CN II to XII intact Skin: As mentioned above in her bilateral lower extremities and face. Rest of the body -warm and dry Diagnostic Data Last Recorded Lab Results: 01/14/25180101/14/251801 Advance Care Planning Advanced Care plannin - 30 Minutes Additional Plan Bilateral lower extremity cellulitis Possible sepsis Likely secondary to injectable drug abuse Received cefazolin 1 g IV once in the ER and Lasix 40 mg IV once in the ER due to elevated proBNP Received clindamycin 600 mg IV once Per tele combatant swimmer recommendations, started Levaquin 750 mg IV daily and vancomycin pharmacy to dose No QTc prolongation [place] [address] mmu p.o. b.i.d. States that she swells with penicillins Ordered Tdap Blood cultures, wound culture ordered Requested wound care consult Pending procalcitonin and CPK Lactic acid normal Has wounds with necrotic center in the lower extremities. Ordered bilateral lower extremity CT Nondiabetic. HbA1c 5.5 She does not appear short of breath, no PND or orthopnea Pending urine tox Possible acute Congestive heart failure with preserved EF History of IV meth abuse in the past No shortness a breath, orthopnea or PND Bilateral lower extremity edema likely from cellulitis and possible acute CHF Medication nonadherence Chest x-ray showed hyperinflation, cardiomegaly and mild pulmonary vascular congestion Elevated proBNP 5812 Echocardiogram from 2018 showed LVEF 55-60% Echocardiogram ordered Received Lasix 40 mg IV in the ER Strict I&Os Started Per tele combatant swimmer, started Lasix 20 mg IV daily Mild hyponatremia and hypochloremia Sodium 131 and chloride 96 Per tele combatant swimmer, possible hypervolemic hyponatremia Started Lasix 20 mg IV daily Abnormal urine analysis Urinalysis showed 30 protein, moderate occult blood, small leukocyte esterase, 3-10 RBC, 5-10 WBC Asymptomatic On antibiotics for cellulitis BUN and creatinine within normal limits. EGFR 80 Methamphetamine, fentanyl and history of heroin abuse Strongly recommend to quit drug abuse Requested social worker palliative care and substance use navigator consult Recommend checking for HIV/hep B/C Diet: Sodium restricted diet DVT prophylaxis: Lovenox 40 mg subcutaneous daily Jacquelyn Jones MD Internal Medicine Resident, PGY 3 Addendum I saw and evaluated the pt with the resident I agree with assessment and plan of care as documented Discussed the case with the resident and saw the pt with the video system in place Date of Service: Jan 14, 2025 Billing Provider: HAI DEL CID MD, [facility] Jan 14, 2025 22:49 HAI DEL CID MD Jan 15, 2025 05:02
[2025-01-14] MEDS ORDERED: METO-395 PO (22:59)
[2025-01-14] MEDS ORDERED: SPIR25TA5 PO (22:59)
[2025-01-14] MEDS ORDERED: FURO40TA4 PO (22:59)
[2025-01-14] MEDS ORDERED: LOSA50TA64 PO (22:59)
[2025-01-14] MEDS ORDERED: BUPR8TAB4 SL (22:59)
[2025-01-14] MEDS ORDERED: DULO20CA18 PO (22:59)
[2025-01-14] MEDS ORDERED: EMPA10TA PO (22:59)
[2025-01-14 23:00] VITALS: BP 133/75; PULSE 81; RESP 16; TEMP 98.6; O2SAT 100
[2025-01-14] MEDS ORDERED: vancomycin/NS 1 GM ADD-VANTAGE 250 ML IV SCH (23:00)
[2025-01-14] MEDS ORDERED: VANCOMYCIN/H2O 1.5g/300mL PB 300 ML IV ONE (23:00)
[2025-01-14 23:18] LABS: URINE HCG NEGATIVE (NEG)
[2025-01-14 23:37] LABS: URINE AMPHETAMINE SCREEN POSITIVE (Neg); URINE BARBITUATE SCREEN NEGATIVE (Neg); URINE BENZODIAZEPINES SCREEN NEGATIVE (Neg); URINE CANNABINOID SCREEN POSITIVE (Neg); URINE COCAINE SCREEN NEGATIVE (Neg); URINE METHADONE SCREEN NEGATIVE (Neg); URINE OPIATE SCREEN NEGATIVE (Neg); URINE PHENCYCLIDINE SCREEN NEGATIVE (Neg)
[2025-01-15] VITALS (7 sets, daily range): BP systolic 117–144; BP diastolic 62–84; PULSE 72–86; RESP 14–18; TEMP 78.1–99.7; O2SAT 96–100
--- NOTE | 2025-01-15 01:24 | RADIOLOGY REPORT ---
Clinical History pulmonary vascular congestion Comparison CXR on 10/19/2017, 1 images. Technique: A single AP/PA chest radiograph was provided for review. Without Contrast FRANZCORTNEY, [id number] FINDINGS: Lungs: Clear lungs without pneumothorax, focal consolidation, pleural effusion or mass. Heart: Normal in size and configuration. Mediastinum: Within normal limits. Vasculature: Within normal limits. Tubes/lines: None. Osseous structures: No evidence for acute fracture. IMPRESSION: Clear lungs. Unremarkable mediastinum. Normal pulmonary vasculature. This report was electronically signed by Wilson Sousa MD on 01/15/2025 1:20:30 AM.
[2025-01-15] MEDS: VANCOMYCIN/H2O 1.5g/300mL PB 300 ML IV ONE ×2 (01:35→01:45)
[2025-01-15] MEDS: TETanus/Pertussis (Acell)/Diphther VAC/PF (Tdap-Adult) 0.5ml syringe IMVAC ONE (03:45)
[2025-01-15 06:02] LABS: MEAN PLATELET VOLUME 9.9 FL (7.4-10.4); RED CELL DISTRIBUTION WIDTH 17.5 % (11.5-14.5)
[2025-01-15 06:05] LABS: APTT 28 SECONDS (22-32); INR 1.1 INR
[2025-01-15 06:31] LABS: CHOL/HDL RATIO 2.0 (0.00-4.99); CREATININE 0.53 MG/DL (0.40-0.90); LDL CHOLESTEROL 39 MG/DL (50-100); PHOSPHORUS 3.6 MG/DL (2.3-4.5); TOTAL CARBON DIOXIDE 26.9 MMOL/L (24-32); eCRCL 127 ML/MIN; eGFR > 90 ML/MIN
[2025-01-15 07:03] LABS: PLATELET ESTIMATE DECREASED
--- NOTE | 2025-01-15 07:30 | RADIOLOGY REPORT ---
Clinical History LE necrotic center wounds Comparison None Technique: All CT scans at this medical facility are performed using dose modulation techniques as appropriate t o a performed exam including the following: Automated exposure control was utilized; adjustment of th e mA and/or kV according to patient size; and use of iterative reconstruction technique. All CT studies are reported to the Dose Index Registry of the [employer]. Without Contrast Radiation Dose: CTDI (mGy): 16.76; DLP (mGy-cm): 1108.51 CORTNEY FRANZ, [id number] TECHNIQUE: Serial axial CT volumetric acquisition was obtained through the without intravenous co ntrast. Image post-processing was performed in multiple planes. FINDINGS: The bones are normal in mineralization and alignment. No fracture or osseous lesion is identified. N o cortical thickening, periosteal reaction or erosive changes identified. The joints are normal with physiologic joint fluid. There is circumferential soft tissue edema and swelling about the lower extremities bilaterally. Cor relate for underlying cellulitis. There is no subcutaneous gas. No obvious fluid collection to sugg est abscess. However, evaluation is limited due to lack of contrast. IMPRESSION: Circumferential soft tissue edema and swelling about the lower extremities bilaterally. Correlate fo r underlying cellulitis. There is no subcutaneous gas. No obvious fluid collection to suggest absce ss. However, evaluation is limited due to lack of contrast. This report was electronically signed by Scott Ventura MD on 01/15/2025 7:27:11 AM.
[2025-01-15] MEDS ORDERED: cefepime 2g/NS 100ml ADVANTAGE 100 ML IV SCH (08:00)
[2025-01-15] MEDS: K and/or MAG REPLACEMENT MC SCH (08:00)
[2025-01-15] MEDS: levoFLOXACIN-Levaquin 750MG/D5 150 ML IV SCH (08:11)
[2025-01-15] MEDS: lactobacillus rhamnosus 10,000 MMU CELLS/CAPSULE PO SCH (08:11)
[2025-01-15] MEDS: vancomycin/NS 1 GM ADD-VANTAGE 250 ML IV SCH (08:11)
--- NOTE | 2025-01-15 11:33 | VASCULAR REPORT ---
VASC VL VENOUS HISTORY: swelling COMPARISON: None TECHNIQUE: Duplex doppler evaluation of the deep venous system of the lower extremity from the common femoral veins, superficial femoral vein, great saphenous vein, deep femoral vein, popliteal vein, an d calf veins, including color doppler and spectral/pulsed waveform analysis, was performed. FINDINGS: Right: - Common femoral vein: Compressible - Deep femoral vein: Compressible - Femoral vein: Compressible - Popliteal vein: Compressible - Posterior tibial vein: Waveforms present - Peroneal vein: Waveforms present - Other: Nothing Left: - Common femoral vein: Compressible - Deep femoral vein: Compressible - Femoral vein: Compressible - Popliteal vein: Compressible - Posterior tibial vein: Waveforms present - Peroneal vein: Waveforms present - Other: Nothing IMPRESSION: No right or left lower extremity deep venous thrombosis.
[2025-01-15] MEDS: HYDROcodone/acetaminophen 10/325mg tab PO PRN (17:14)
--- NOTE | 2025-01-15 19:04 | CARDIOLOGY REPORT ---
APPROVED REPORT EXAM: Comprehensive 2D, Doppler, and color-flow Echocardiogram. Patient Location: [address] Blood Pressure: 133/75 mmHg Heart Rate: 79 bpm Rhythm: Sinus Rhythm Indications Congestive Heart Failure Elevated ProBNP (5812) Hx of IV Drug use Suspected Cellulitis Lower extremetie swelling Textiles Sales Representative: None Previous echo: 09/27/2017 [facility] EF:55-60% 2D Dimensions RVDd 3.5 cm LA Diam4.4 cm IVSd 1.1 (0.7-1.1cm) LVDd 5.3 cm PWd 1.1 (0.7-1.1cm) RA Minor4.3 cm LVOT Diameter 2.04 (1.8-2.4cm) IVC 17.32 mm CO 5.3 L/min M-Mode Dimensions RVDd 3.33 (2.1-3.2cm) IVSd 1.10 (0.7-1.1cm) LVDd 6.00 (4.0-5.6cm) Aortic Root 2.71 (2.2-3.7cm) PWd 1.13 (0.7-1.1cm) Aortic Cusp Exc 1.65 (1.5-2.0cm) IVSs 1.17 cm MV EPSS 1.5 (<0.5cm) LVDs 4.72 (2.0-3.8cm) FS (%) 22 % PWs 1.17 cm ESV(Teich) 94.7 ml LVEF(%) 43 (>50%) Aortic Valve AoV Peak Joe. 182.8 cm/s AoV VTI 27.7 cm AO Peak GR. 13.4 mmHg AO Mean GR. 6 mmHg LVOT VTI 25.83 cm LVOT Peak Joe. 149.8 cm/s CARLO(VTI)/BSA 3.06 cm2/m2 CARLO (VTI) 3.06 cm2 Mitral Valve MV E Velocity 87.9 cm/s MV Peak Gr. 4 mmHg MV DECEL TIME 216 ms MV A Velocity 73.8 cm/s MV Mean Gr. 2 mmHg MV PHT 60 ms E/A Ratio 1.2 MVA (PHT) 3.67 cm2 MV QJgm133.7 cm/sMV VMean60.3 cm/s MVA VTI3.34 cm2MV VTI25.3 cm TDI Medial E' P. V 8.26 cm/s E/Medial E' 10.6 Tricuspid Valve TR P. Velocity 201 cm/s RAP ESTIMATE 10 mmHg TR Peak Gr. 16 mmHg RVSP 26 mmHg Pulmonary Vein S1 Velocity 41.2 cm/s D2 Velocity 46.7 cm/s PVa Cywhijyl95.9 cm/s PVa [id number] msec LEFT VENTRICLE Normal LV size and wall thickness. Septal segements appear to be hypokinetic. Overall systolic functi on appears to be mildly reduced. Overall LVEF is around 45%. RIGHT VENTRICLE RV is mildly dilated in size with normal function. Estimated PA systolic pressure is 26 mmHg. ATRIA Left atrium is mildly dilated. Possible small PFO with trivial left to right shunt by color Doppler. Right atrium is mildly dilated. AORTIC VALVE Trileaflet AV appears sclerotic and thickened without stenosis or insufficiency. No vegetations visua lized. MITRAL VALVE Mild MV annular thickening without stenosis. Mild regurgitation. No vegetations visualized. TRICUSPID VALVE TV appears structurally normal with trace regurgitation. PULMONIC VALVE Normal PV without stenosis, trace insufficiency. GREAT VESSELS The aortic root is normal in size. IVC is normal in size and collapses greater than 50% with inspirat ion. PERICARDIUM Normal pericardium. No pericardial effusion seen. Other Information Study Quality: Adequate Conclusion Normal LV size and wall thickness. Septal segements appear to be hypokinetic. Overall systolic func tion appears to be mildly reduced. Overall LVEF is around 45%. RV is mildly dilated in size with normal function. Estimated PA systolic pressure is 26 mmHg. Left atrium is mildly dilated. Possible small PFO with trivial left to right shunt by color Doppler. Right atrium is mildly dilated. Trileaflet AV appears sclerotic and thickened without stenosis or insufficiency. No vegetations visu alized. Mild MV annular thickening without stenosis. Mild regurgitation. No vegetations visualized. TV appears structurally normal with trace regurgitation. Normal PV without stenosis, trace insufficiency. Normal pericardium. No pericardial effusion seen.
[2025-01-15] MEDS: enoxaparin 40mg/0.4ml syringe SQ SCH (19:26)
--- NOTE | 2025-01-15 19:32 | PROGRESS NOTE ---
Daily Progress Note Providers to CC ~ Antibiotic Timeout Antibiotic Ordered?: Yes Subjective Patient was seen in her room she was resting lower extremity showed signs of cellulitis. Patient denied use of any injectable drugs over her lower extremity. Patient's urine drug screen positive for fentanyl, meth and cannabis. Objective Vital Signs Date Time Temp Pulse Resp B/P (MAP) Pulse Ox O2 Delivery O2 Flow Rate FiO2 01/15/25 18:30 55 01/15/25 17:14 16 01/15/25 10:00 98.7 117/62 (80) 99 Room Air Result Diagram: 01/15/25 0510 01/15/25 0510 General-patient not in any acute distress, alert awake ill-appearing,age-appropriate HEENT-atraumatic normocephalic, neck supple without elevated JVD, no thyromegaly or carotid bruit. No lymphadenopathy bilaterally. Eyes-no icterus or pallor seen in eyes Chest-clear to auscultation bilaterally, breathing nonlabored no tachypnea, no wheezing, no crepitation, no crackles. Heart-S1-S2 normal, regular heart rate no murmur Abdomen bowel sounds positive on auscultation, soft nondistended nontender no guarding, no rigidity Skin/ Extremity- no pedal edema able to move all 4 extremities. Signs of cellulitis present over both lower extremity Neurology-grossly intact, nonfocal alert awake Psychiatry - patient is not confused or agitated cooperated during physical examination Coagulation Studies Laboratory Tests Test 01/15/25 05:10 Prothrombin Time 11.5 SECONDS (9.0-12.0) INR International Normalized Ratio 1.1 INR Activated Partial Thromboplast Time 28 SECONDS (22-32) Coagulation Comments Problem\Assessment\Plan Bilateral lower extremity cellulitis Possible sepsis Likely secondary to injectable drug abuse but patient denied use of IV drug Continue on Levaquin 750 mg IV daily and vancomycin pharmacy to dose No QTc prolongation on EKG Blood cultures, wound culture ordered and we will follow the results wound care consult ordered reviewed procalcitonin and CPK Lactic acid normal Has wounds with necrotic center in the lower extremities. Ordered bilateral lower extremity CT Nondiabetic. HbA1c 5.5 She does not appear short of breath, no PND or orthopnea Pending urine tox Possible acute Congestive heart failure with preserved EF History of IV meth abuse in the past No shortness a breath, orthopnea or PND Bilateral lower extremity edema likely from cellulitis and possible acute CHF Medication nonadherence Chest x-ray showed hyperinflation, cardiomegaly and mild pulmonary vascular congestion Elevated proBNP 5812 Echocardiogram done and showed signs of systolic function mildly reduced overall ejection fraction 45. Received Lasix 40 mg IV in the ER on Lasix 20 mg IV daily Mild hyponatremia and hypochloremia Sodium 131 and chloride 96 , we will monitor Per tele tank carpenter, possible hypervolemic hyponatremia Started Lasix 20 mg IV daily Abnormal urine analysis Urinalysis showed 30 protein, moderate occult blood, small leukocyte esterase, 3-10 RBC, 5-10 WBC Asymptomatic On antibiotics for cellulitis BUN and creatinine within normal limits. EGFR 80 Methamphetamine, fentanyl and history of heroin abuse Strongly recommend to quit drug abuse Requested web content & social media manager and substance use navigator consult DVT prophylaxis: Lovenox 40 mg subcutaneous daily Patient's current condition is guarded we will continue to follow patient in AM . Date of Service: Jan 15, 2025 Billing Provider: EVANS PATEL MD Common Visit Codes: [id number] INP/OBS CARE(HIGH) EVANS PATEL MD Jan 15, 2025 19:32
[2025-01-16] MEDS: VANCOMYCIN LEVEL IV ONE (00:30)
[2025-01-16] MEDS ORDERED: buprenorphine/naloxone 8MG-2MG SUBlingual film SL ONE (00:50)
[2025-01-16] MEDS ORDERED: buprenorphine/naloxone 2-0.5mg sublingual tablet SL ONE (01:04)
[2025-01-16 05:49] LABS: MEAN PLATELET VOLUME 10.2 FL (7.4-10.4); RED CELL DISTRIBUTION WIDTH 17.4 % (11.5-14.5)
[2025-01-16 06:00] VITALS: BP 136/83; PULSE 74; RESP 16; TEMP 98.7; O2SAT 99
[2025-01-16 06:01] LABS: APTT 33 SECONDS (22-32); INR 1.1 INR
[2025-01-16 06:53] LABS: CREATININE 0.58 MG/DL (0.40-0.90); PHOSPHORUS 3.4 MG/DL (2.3-4.5); TOTAL CARBON DIOXIDE 27.4 MMOL/L (24-32); eCRCL 116 ML/MIN; eGFR > 90 ML/MIN
[2025-01-16] MEDS ORDERED: EMPAGLIFLOZIN 10 MG TABLET PO SCH (08:00)
[2025-01-16] MEDS ORDERED: metoprolol succinate 25mg (24-HOUR) SR. Tablet PO SCH (08:00)
[2025-01-16] MEDS ORDERED: non-formulary drug (Buprenorphine Hcl 1 TAB) SL SCH (08:00)
[2025-01-16] MEDS ORDERED: duloxetine 20mg capsule.DR PO SCH (08:00)
[2025-01-16 10:00] VITALS: BP 142/88; PULSE 91; RESP 23; TEMP 97.2; O2SAT 100
[2025-01-16] MEDS: vancomycin/NS 1 GM ADD-VANTAGE 250 ML IV SCH (10:04)
[2025-01-16] MEDS: buprenorphine/naloxone 8MG-2MG SUBlingual film SL ONE (10:04)
[2025-01-16] MEDS: buprenorphine/naloxone 8MG-2MG SUBlingual film SL SCH (10:06)
[2025-01-16 18:00] VITALS: BP 144/93; PULSE 79; RESP 15; TEMP 98.6; O2SAT 100
[2025-01-16] MEDS: diazepam inj 5 MG/ML inj. IV PRN (18:53)
--- NOTE | 2025-01-16 19:44 | PROGRESS NOTE ---
Daily Progress Note Providers to CC ~ Antibiotic Timeout Antibiotic Ordered?: Yes Subjective The patient has wounds scattered throughout her skin the left leg wound culture grew out MRSA I have changed antibiotics and now the patient is on doxycycline and if discontinue levofloxacin and vancomycin Objective Vital Signs Date Time Temp Pulse Resp B/P (MAP) Pulse Ox O2 Delivery O2 Flow Rate FiO2 01/16/25 18:25 66 01/16/25 18:00 98.6 15 144/93 (110) 100 Room Air Result Diagram: 01/16/25 0455 01/16/25 0621 Gen. No acute distress alert and oriented 4, significantly anxious Lungs clear to ascultation bilaterally, no wheezes rales or rhonchi appreciated Heart normal sinus rhythm no murmurs rubs or clicks noted Abdomen soft nontender bowel sounds are normoactive Lower extremities no clubbing cyanosis, nor edema appreciated bilaterally Skin multiple focal ulcerations scattered throughout the patient's face and extremities Coagulation Studies Laboratory Tests Test 01/16/25 04:55 Prothrombin Time 11.3 SECONDS (9.0-12.0) INR International Normalized Ratio 1.1 INR Activated Partial Thromboplast Time 33 SECONDS (22-32) H Coagulation Comments Problem\Assessment\Plan Bilateral lower extremity cellulitis Possible sepsis Likely secondary to injectable drug abuse but patient denied use of IV drug Continue on Levaquin 750 mg IV daily and vancomycin pharmacy to dose No QTc prolongation on EKG Blood cultures, wound culture ordered and we will follow the results wound care consult ordered reviewed procalcitonin and CPK Lactic acid normal Has wounds with necrotic center in the lower extremities. Ordered bilateral lower extremity CT Nondiabetic. HbA1c 5.5 She does not appear short of breath, no PND or orthopnea Pending urine tox 01/16 wound culture the left lower extremity grew out MRSA DC vancomycin and DC Levaquin Start p.o. doxycycline Possible acute Congestive heart failure with preserved EF History of IV meth abuse in the past No shortness a breath, orthopnea or PND Bilateral lower extremity edema likely from cellulitis and possible acute CHF Medication nonadherence Chest x-ray showed hyperinflation, cardiomegaly and mild pulmonary vascular congestion Elevated proBNP 5812 Echocardiogram done and showed signs of systolic function mildly reduced overall ejection fraction 45. Received Lasix 40 mg IV in the ER on Lasix 20 mg IV daily Mild hyponatremia and hypochloremia Sodium 131 and chloride 96 , we will monitor Per tele latex spooler, possible hypervolemic hyponatremia Started Lasix 20 mg IV daily 01/16 resolved Abnormal urine analysis Urinalysis showed 30 protein, moderate occult blood, small leukocyte esterase, 3-10 RBC, 5-10 WBC Asymptomatic On antibiotics for cellulitis BUN and creatinine within normal limits. EGFR 80 Methamphetamine, fentanyl and history of heroin abuse Strongly recommend to quit drug abuse Requested social contact worker and substance use navigator consult 01/16 start Suboxone DVT prophylaxis: Lovenox 40 mg subcutaneous daily Date of Service: Jan 16, 2025 Billing Provider: KRYSTINA MELLO DO Common Visit Codes: 68513-[id number] INP/OBS CARE(HIGH) KRYSTINA MELLO DO Jan 16, 2025 19:44
[2025-01-16] MEDS: DOXYCYCLINE 100MG CAPSULE PO STA (19:56)
[2025-01-16 22:00] VITALS: BP 141/97; PULSE 68; RESP 15; TEMP 97.7; O2SAT 99
[2025-01-17] MEDS: VANCOMYCIN LEVEL IV ONE (05:05)
[2025-01-17 05:53] LABS: APTT 26 SECONDS (22-32); CREATININE 0.50 MG/DL (0.40-0.90); INR 1.3 INR; PHOSPHORUS 3.7 MG/DL (2.3-4.5); TOTAL CARBON DIOXIDE 25.7 MMOL/L (24-32); eCRCL 134 ML/MIN; eGFR > 90 ML/MIN
[2025-01-17 06:00] VITALS: BP 155/110; PULSE 84; RESP 16; TEMP 98.9; O2SAT 100
[2025-01-17] MEDS: DOXYCYCLINE 100MG CAPSULE PO SCH (08:28)
[2025-01-17 10:00] VITALS: BP 142/100; PULSE 78; RESP 17; TEMP 97.8; O2SAT 99
[2025-01-17 11:16] LABS: MEAN PLATELET VOLUME 10.7 FL (7.4-10.4); RED CELL DISTRIBUTION WIDTH 17.4 % (11.5-14.5)
[2025-01-17] MEDS: levoFLOXACIN 750MG TABLET PO SCH (12:56)
[2025-01-17] MEDS: lactose-reduced food (Ensure High Protein) 237ml bottle PO SCH (17:55)
[2025-01-17] MEDS ORDERED: LEVO750T68 PO (18:14)
[2025-01-17] MEDS ORDERED: DOXY-224 PO (18:14)
[2025-01-17] MEDS ORDERED: BUPR8TAB4 SL (18:14)
--- NOTE | 2025-01-17 19:41 | DISCHARGE SUMMARY ---
Discharge Summary Providers to CC ~ Discharge Summary Admission Diagnosis: BILATERAL LOWER EXTREMITY CELLULITIS Hospital Course DATE OF ADMISSION: 01/14/2025 DATE OF DISCHARGE: 01/17/2025 Discharge Diagnosis\\Comment: Bilateral lower extremity cellulitis, HFrEF, mild hyponatremia and hypochlor emia, methamphetamine fentanyl and heroin use disorders Operations\\Procedures: None Consultants: None Complications: None Condition on DC: Stable New Medications: Doxycycline Hyclate (Doxycycline Hyclate) 100 Mg Capsule 100 MG PO BID@0830,1730, #12 CAP Levofloxacin (Levofloxacin) 750 Mg Tablet 750 MG PO DAILY@11, #6 TAB Continued Medications: Buprenorphine Hcl (Buprenorphine Hcl) 8 Mg Tab.subl 1 TAB SL BID, #28 TAB (This prescription has been renewed) Duloxetine HCl (Duloxetine HCl) 20 Mg Capsule.dr 1 CAP PO DAILY Empagliflozin (Jardiance) 10 Mg Tablet 1 TAB PO DAILY Furosemide (Furosemide) 40 Mg Tablet 1 TAB PO DAILY Losartan Potassium (Losartan Potassium) 50 Mg Tablet 1 TAB PO DAILY Metoprolol Succinate (Metoprolol Succinate) 25 Mg Tab.sr.24h 1 TAB PO DAILY Spironolactone (Spironolactone) 25 Mg Tablet 1 TAB PO DAILY Discharge Summary: The patient was admitted by resident physician JACQUELYN Poe, under the supervision of HAI Black MD with the following HPI:"This 34-year-old female with a past medical IV drug abuse, septic pulmonary emboli and endocarditis in 2018, MRSA abscess in 2013, CHF with preserved EF presented to the ER with a chief concern of worsening bilateral lower extremity erythema, edema and pain. She has multiple superficial skin lesions on her lower extremities and states that they are mosquito bites and she is scratched skin more often. She also has superficial skin breakouts and erythema around the mouth and bilateral eyebrow region and she attributes them to mosquito bites. Mentioned that she is supposed to take Lasix at home for CHF but no recent Cardiology, PCP follow up on recent echocardiogram. Stated that she has not taken her medications for more than two weeks because of change of insurance. Symptoms in bilateral lower extremities noted about 10 days back. Denies any chest pain, shortness of breath, PND, orthopnea, nausea or vomiting, constipation or diarrhea, dysuria or any other concerns. She has a history of IV heroin and meth abuse. Smokes fentanyl daily. Also smoked methamphetamine in the past." The patient has excoriations scattered her face and extremities wound culture of the left lower extremity grew out both MRSA and group a strep the patient has been on Levaquin initially and on IV vancomycin the patient was changed to doxycycline on the which MRSA had good coverage, and then levofloxacin was added back on the to cover the group a strep infection. The patient was asked if she wanted to go home on the evening of the and the patient wanted to go home as soon as possible the patient is also discharged with a prescription for Suboxone 8 mg sublingual tablets which she will be taking two these daily the patient received a two week course of Suboxone and the patient will be working on getting [facility]. The patient has chronic HFrEF has not LVEF of 45% on echocardiogram she has continue on spironolactone metoprolol, losartan and Jardiance and was discharged to continues medications the patient received IV Lasix during hospitalization in his to continue Lasix at home. The patient has a mild hyponatremia on admission her serum sodium was 131 this improved and was 133 on the day of discharge Gen. No acute distress alert and oriented 4, significantly anxious Lungs clear to ascultation bilaterally, no wheezes rales or rhonchi appreciated Heart normal sinus rhythm no murmurs rubs or clicks noted Abdomen soft nontender bowel sounds are normoactive Lower extremities no clubbing cyanosis, nor edema appreciated bilaterally Skin multiple focal ulcerations scattered throughout the patient's face and extremities The patient felt ready to be discharged and was medically cleared to be discharged on 01/17/2025 The patient was seen and evaluated on day of discharge. Time spent on discharge 35 minutes *Problems/Diagnosis: (1) MRSA cellulitis Total Time Spent on D/C: > 30 Minutes Date of Service: Jan 17, 2025 Billing Provider: KRYSTINA MELLO DO Common Visit Codes: 42999-NYB/OBS DISCH DAY >30min KRYSTINA MELLO DO Jan 17, 2025 19:39
== END 2025-01-17 19:05 | disposition home or self-care (01) | DRG 383 ==
LOC: ER 17:22 → ED HOLD 22:14 → EDBEDREQ 22:45 → ORTHO 4S 23:05
PROVIDERS: ADMIT Internal Medicine; ATTEND Internal Medicine
DX: L03.116 Cellulitis of left lower limb (principal); I50.42 Chronic combined systolic (congestive) and diastolic (congestive) heart failure; E87.1 Hypo-osmolality and hyponatremia; E87.8 Other disorders of electrolyte and fluid balance, not elsewhere classified; I11.0 Hypertensive heart disease with heart failure; L03.115 Cellulitis of right lower limb; F19.10 Other psychoactive substance abuse, uncomplicated; J43.9 Emphysema, unspecified; I25.2 Old myocardial infarction; Z90.49 Acquired absence of other specified parts of digestive tract; Z80.3 Family history of malignant neoplasm of breast
CPT/HCPCS: 36415; 71045; 73700; 80048; 80053; 80061; 80076; 80202; 80305; 81001; 81025; 82550; 83036; 83605; 83735; 83880; 84100; 84145; 85008; 85025; 85610; 85730; 87040; 87070; 87077; 87081; 87088; 87186; 92508; 92616; 93005; 93306; 93970; 96365; 96375; 99285; G0378; J0690; J1650; J1938; J1956; J2270; J3360; J3373; J3375; J3490; J7030